=== PATIENT | male | born 1975 | race Caucasian/White ===

== ENCOUNTER 2018-04-16 12:19 | Outpatient (REF) | payer MEDICARE, SELFPAY ==
[2018-04-16 19:03] LABS: TSH (W/Ref FT4) 2.49 uIU/mL (0.358-3.74)
[2018-04-19 10:31] LABS: ALT 57 U/L (7-55); ActiTest Grade A0-A1; ActiTest Interpretation no activity; ActiTest Score 0.27; Alpha-2-Macroglobulin 177 mg/dL (100 - 280); Apoliprotein A1 166 mg/dL (>=120); Bilirubin, Total 0.2 mg/dL (<=1.2); FibroTest Interpretation no fibrosis; FibroTest Score 0.09; FibroTest Stage F0; GGT 94 U/L (8 - 61); Haptoglobin 179 mg/dL (30 - 200)
[2018-04-19 15:50] LABS: Testosterone, Free 8.36 ng/dL (4.46-17.1); Testosterone, Total 440 ng/dL (240-950)
== END 2018-04-16 12:39 ==
LOC: NCHCN 12:19
PROVIDERS: PCP Family Medicine; Visit Provider Family Medicine
DX: R94.6 Abnormal results of thyroid function studies (principal); K73.2 Chronic active hepatitis, not elsewhere classified; R53.83 Other fatigue
CPT/HCPCS: 82172; 82247; 82977; 83010; 83883; 84402; 84403; 84460; 84443

== ENCOUNTER 2018-05-01 08:34 | Emergency (ER) | payer MEDICARE, MEDICAID, SELFPAY ==
[2018-05-01 08:41] VITALS: BP 149/98; PULSE 113; RESP 16; TEMP 35.9; O2SAT 98
--- NOTE | 2018-05-01 09:11 | W.ED.GENAD ---
Discharge Plan Disposition Patient Disposition: HOME Condition: Stable Discharge Details Chief Complaint: DentalOral Clinical Impression: Dental infection, Dental abscess Primary Care Provider: Rosa Danielle ED Provider: Kenisha Hanks Home Meds and New Rx's Prescriptions: New penicillin V potassium 500 mg tablet 500 mg PO QID 7 Days Qty: 28 RF: 0 Continue quetiapine 25 MG tablet 400 mg PO BID RF: 0 buspirone 30 MG tablet 15 mg PO BID RF: 0 carbamazepine [Tegretol] 200 MG tablet 400 mg PO BID RF: 0 clonazepam 1 MG tablet 1 tab PO BID RF: 0 lisinopril 5 mg Tablet 5 mg PO DAILY RF: 0 Discharge Instructions Instructions: Dental Abscess (ED) Additional Instructions: You likely had a small dental abscess on exam today which was drained with palpation. No additional pus was removed with aspiration with needle. Take the antibiotics until finished. You will receive a call from care management regarding follow-up with a dentist for further evaluation of your dental pain and for any worsening of your abscess. Return to the emergency department with any worsening or new concerning symptoms such as fever, increased pain or swelling, or difficulty breathing. Discharge Data Discharge Date/Time-TO BE ENTERED AT DEPARTURE: 05/01/18 09:47 Discharge Physician: Kenisha Hanks Medical Decision Making 42-year-old male who presents with left lower dental pain for the past week, worse over the past 2 days. Denies fever, difficulty swallowing or difficulty breathing. Does not have a dentist. Afebrile. Mildly hypertensive, patient has a history of hypertension. Initially tachycardic on triage but then HR normalized during my exam. Patient appears nontoxic and in no acute distress. No submandibular swelling, drooling, no evidence of Cholo's angina. No peritonsillar abscess. Upon further inspection of area of pain in left lower most posterior tooth, when palpating with tongue depressor there was a very small amount of yellow pus drainage expressed with tongue blade from surrounding mucosa. There was no obvious discrete abscess, fluctuance noted. Area was anesthetized with 2 cc of lidocaine. Needle aspiration using a 18-gauge needle with 5 cc syringe was attempted 3 times in the area without any pus expressed. It is possible with tongue blade palpation, there was a very small abscess that was drained with palpation. Patient felt better after anesthesia. Patient given dose of penicillin here. He denied any relief with ibuprofen it was given 3 tabs of Tylenol with codeine for home. He was placed on care management list to help arrange for a follow-up appointment with a dentist. He was instructed to return here with any worsening symptoms. HPI General Mode of arrival: ambulatory. Date/Time Provider Initiated Documentation: 05/01/18 09:09. Limitations to Documentation: no limitations. Information obtained by: patient. HPI Narrative: Patient is a 42-year-old male presents with left lower dental pain for the past week, worse over the past 2 days. Patient has been taking ibuprofen and Tylenol without relief. He denies known fever. He has been eating and drinking. He denies neck pain or difficulty swallowing. He states he does not have a dentist. History: Anxiety, bipolar disorder, hypertension Surgical history: Left shoulder Bankart lesion repair, right knee bone spur Social history: Denies tobacco, alcohol or drugs Medications: Seroquel, Vistaril, Tegretol, Klonopin, BuSpar Allergies: Depakote PCP: Dr. Loving Related Data Home Medications Medication Instructions Recorded Confirmed buspirone 15 mg PO BID 10/10/12 05/01/18 quetiapine 400 mg PO BID 10/10/12 05/01/18 carbamazepine [Tegretol] 400 mg PO BID 11/16/12 05/01/18 clonazepam 1 tab PO BID 06/02/14 05/01/18 lisinopril 5 mg PO DAILY 05/01/18 05/01/18 penicillin V potassium 500 mg PO QID 7 Days #28 tab 05/01/18 Previous Rx's Medication Instructions Recorded penicillin V potassium 500 mg PO QID 7 Days #28 tab 05/01/18 Allergies Allergy/AdvReac Type Severity Reaction Status Date / Time divalproex sodium AdvReac Intermediate Unverified 05/01/18 08:48 [facility] General Stated Complaint: DentalOral RAMU: 4 Review of Systems Review of Systems All systems reviewed & are unremarkable except as noted in HPI and below PFSH Medical History Benign hypertension Bipolar disorder Social History Smoking/Tobacco Use Status: Former Tobacco Use Surgical History Bankart repair (11/19/12) EXCISION OSTEOCHONDROMA (10/17/12) Exam Const General: cooperative and healthy appearing Orientation: alert and awake HENMT Head: normal to inspection Ears: hearing grossly normal bilaterally, external ears normal and TM's normal bilaterally General nose exam: external nose normal Face and sinus: normal facial exam Mouth: oral mucosae normal Teeth and gingiva: other (Tenderness to palpation to left lower most posterior tooth in front of possible impacted wisdom tooth. Mild edema and erythema with tenderness palpation of mucosa posterior to left lower most posterior tooth but no obvious discrete abscess) Throat: posterior oropharynx normal Eyes General: appearance normal, both eyes and all related structures Eyelids: eyelids normal Pupils: PERRL EOM: EOM intact bilaterally Neck Neck: normal visual inspection and No submandibular swelling Lymphatic: no lymphadenopathy noted Chest Chest: normal inspection of the chest Resp Effort & Inspection: normal respiratory effort and able to speak in complete sentences Cardio Rate: regular rate Skin General skin exam: no rashes or lesions noted Neuro General: alert and awake Cognition: normal cognition Speech: speech normal Gait: normal gait Motor: muscle tone normal throughout Extrem General: normal to inspection and full ROM Psych Appearance: grossly normal Mental Status: mental status grossly normal Speech and Movement: speech and movement normal Affect: normal affect Thought Process: normal Course Vital Signs Temperature 96.6 F L 05/01/18 08:41 Pulse 113 H 05/01/18 08:41 Respiratory Rate 16 05/01/18 08:41 Blood Pressure 149/98 H 05/01/18 08:41 Pulse Oximetry 98 05/01/18 08:41 Temperature 96.6 F L 05/01/18 08:41 Temperature Source Skin 05/01/18 08:41 Pulse 113 H 05/01/18 08:41 Respiratory Rate 16 05/01/18 08:41 Respiratory Effort Non-Labored 05/01/18 08:41 Blood Pressure 149/98 H 05/01/18 08:41 Blood Pressure Position Sitting 05/01/18 08:41 Pulse Oximetry 98 05/01/18 08:41 Oxygen Delivery Method Room Air 05/01/18 08:41 Oxygen Flow Rate 0 05/01/18 08:41 Pain Level 9 05/01/18 08:41
--- NOTE | 2018-05-01 09:18 | ED.GENADUL_ITS ---
Discharge Plan Disposition Patient Disposition: HOME Condition: Stable Discharge Details Chief Complaint: DentalOral Clinical Impression: Dental infection, Dental abscess Primary Care Provider: Rosa Danielle ED Provider: Kenisha Hanks Home Meds and New Rx's Prescriptions: New penicillin V potassium 500 mg tablet 500 mg PO QID 7 Days Qty: 28 RF: 0 Continue quetiapine 25 MG tablet 400 mg PO BID RF: 0 buspirone 30 MG tablet 15 mg PO BID RF: 0 carbamazepine [Tegretol] 200 MG tablet 400 mg PO BID RF: 0 clonazepam 1 MG tablet 1 tab PO BID RF: 0 lisinopril 5 mg Tablet 5 mg PO DAILY RF: 0 Discharge Instructions Instructions: Dental Abscess (ED) Additional Instructions: You likely had a small dental abscess on exam today which was drained with palpation. No additional pus was removed with aspiration with needle. Take the antibiotics until finished. You will receive a call from care management regarding follow-up with a dentist for further evaluation of your dental pain and for any worsening of your abscess. Return to the emergency department with any worsening or new concerning symptoms such as fever, increased pain or swelling, or difficulty breathing. Discharge Data Discharge Date/Time-TO BE ENTERED AT DEPARTURE: 05/01/18 09:47 Discharge Physician: Kenisha Hanks Medical Decision Making 42-year-old male who presents with left lower dental pain for the past week, worse over the past 2 days. Denies fever, difficulty swallowing or difficulty breathing. Does not have a dentist. Afebrile. Mildly hypertensive, patient has a history of hypertension. Initially tachycardic on triage but then HR normalized during my exam. Patient appears nontoxic and in no acute distress. No submandibular swelling, drooling , no evidence of Cholo's angina. No peritonsillar abscess. Upon further inspection of area of pain in left lower most posterior tooth, when palpating with tongue depressor there was a very small amount of yellow pus drainage expressed with tongue blade from surrounding mucosa. There was no obvious discrete abscess, fluctuance noted. Area was anesthetized with 2 cc of lidocaine. Needle aspiration using a 18- gauge needle with 5 cc syringe was attempted 3 times in the area without any pus expressed. It is possible with tongue blade palpation, there was a very small abscess that was drained with palpation. Patient felt better after anesthesia. Patient given dose of penicillin here. He denied any relief with ibuprofen it was given 3 tabs of Tylenol with codeine for home. He was placed on care management list to help arrange for a follow-up appointment with a dentist. He was instructed to return here with any worsening symptoms. HPI General Mode of arrival: ambulatory . Date/Time Provider Initiated Documentation: 05/01/18 09:09 . Limitations to Documentation: no limitations . Information obtained by: patient . HPI Narrative: Patient is a 42-year-old male presents with left lower dental pain for the past week, worse over the past 2 days. Patient has been taking ibuprofen and Tylenol without relief. He denies known fever. He has been eating and drinking. He denies neck pain or difficulty swallowing. He states he does not have a dentist. History: Anxiety, bipolar disorder, hypertension Surgical history: Left shoulder Bankart lesion repair, right knee bone spur Social history: Denies tobacco, alcohol or drugs Medications: Seroquel, Vistaril, Tegretol, Klonopin, BuSpar Allergies: Depakote PCP: Dr. Loving Related Data Home Medications Medication Instructions Recorded Confirmed buspirone 15 mg PO BID 10/10/12 05/01/18 quetiapine 400 mg PO BID 10/10/12 05/01/18 carbamazepine [Tegretol] 400 mg PO BID 11/16/12 05/01/18 clonazepam 1 tab PO BID 06/02/14 05/01/18 lisinopril 5 mg PO DAILY 05/01/18 05/01/18 penicillin V potassium 500 mg PO QID 7 Days #28 tab 05/01/18 Previous Rx's Medication Instructions Recorded penicillin V potassium 500 mg PO QID 7 Days #28 tab 05/01/18 Allergies Allergy/AdvReac Type Severity Reaction Status Date / Time divalproex sodium AdvReac Intermediate Unverified 05/01/18 08:48 [[facility] General Stated Complaint: DentalOral RAMU: 4 Review of Systems Review of Systems All systems reviewed & are unremarkable except as noted in HPI and below PFSH Medical History Benign hypertension Bipolar disorder Social History Smoking/Tobacco Use Status: Former Tobacco Use Surgical History Bankart repair (11/19/12) EXCISION OSTEOCHONDROMA (10/17/12) Exam Const General: cooperative and healthy appearing Orientation: alert and awake HENMT Head: normal to inspection Ears: hearing grossly normal bilaterally, external ears normal and TM's normal bilaterally General nose exam: external nose normal Face and sinus: normal facial exam Mouth: oral mucosae normal Teeth and gingiva: other (Tenderness to palpation to left lower most posterior tooth in front of possible impacted wisdom tooth. Mild edema and erythema with tenderness palpation of mucosa posterior to left lower most posterior tooth but no obvious discrete abscess) Throat: posterior oropharynx normal Eyes General: appearance normal, both eyes and all related structures Eyelids: eyelids normal Pupils: PERRL EOM: EOM intact bilaterally Neck Neck: normal visual inspection and No submandibular swelling Lymphatic: no lymphadenopathy noted Chest Chest: normal inspection of the chest Resp Effort & Inspection: normal respiratory effort and able to speak in complete sentences Cardio Rate: regular rate Skin General skin exam: no rashes or lesions noted Neuro General: alert and awake Cognition: normal cognition Speech: speech normal Gait: normal gait Motor: muscle tone normal throughout Extrem General: normal to inspection and full ROM Psych Appearance: grossly normal Mental Status: mental status grossly normal Speech and Movement: speech and movement normal Affect: normal affect Thought Process: normal Course Vital Signs Temperature 96.6 F L 05/01/18 08:41 Pulse 113 H 05/01/18 08:41 Respiratory Rate 16 05/01/18 08:41 Blood Pressure 149/98 H 05/01/18 08:41 Pulse Oximetry 98 05/01/18 08:41 Temperature 96.6 F L 05/01/18 08:41 Temperature Source Skin 05/01/18 08:41 Pulse 113 H 05/01/18 08:41 Respiratory Rate 16 05/01/18 08:41 Respiratory Effort Non-Labored 05/01/18 08:41 Blood Pressure 149/98 H 05/01/18 08:41 Blood Pressure Position Sitting 05/01/18 08:41 Pulse Oximetry 98 05/01/18 08:41 Oxygen Delivery Method Room Air 05/01/18 08:41 Oxygen Flow Rate 0 05/01/18 08:41 Pain Level 9 05/01/18 08:41
[2018-05-01] MEDS: Penicillin V POTASSIUM 500 MG TAB PO (09:38)
--- NOTE | 2018-05-02 09:36 | PDOC.ERCMPRO ---
Care Management Progress Note 05/02/18-Pt seen on 05/01/18 for a dental abcess. CM made a f/u appt with [facility] 05/07/18 at 10:30am. LOKESH reeder for Pt.
== END 2018-05-01 09:47 | disposition home or self-care (01) ==
LOC: ER 10:05
PROVIDERS: Emergency Provider Physician Assistant; PCP Family Medicine
DX: K04.7 Periapical abscess without sinus (principal); I10 Essential (primary) hypertension
CPT/HCPCS: 99283

== ENCOUNTER → 2020-06-17 13:44 | Outpatient (REF) | payer MEDICARE, MEDICAID, SELFPAY ==
[2020-06-17 20:41] LABS: ALT 55 U/L (16-63); AST 26 U/L (15-37); Albumin 4.4 g/dL (3.4-5.0); Alkaline Phosphatase 92 U/L (46-116); Anion Gap 8.8 mmol/L (3-11); BUN 23 mg/dL (7-18); Bilirubin, Total 0.3 mg/dL (0.2-1.0); CO2 26.2 mmol/L (21.0-32.0); CREATININE 1.04 mg/dL (0.70-1.30); Calcium 9.2 mg/dL (8.5-10.1); Calculated LDL 175 mg/dL (<100); Chloride 104 mmol/L (98-107); Cholesterol 246 mg/dL (<200); Glucose 118 mg/dL (74-106); HDL Cholesterol 41 mg/dL (40-60); Potassium 4.3 mmol/L (3.5-5.1); Sodium 139 mmol/L (136-145); TSH (W/Ref FT4) 2.13 uIU/mL (0.36-3.74); Total Protein 8.2 g/dL (6.4-8.2); Triglyceride 151 mg/dL (<150)
[2020-06-17 20:43] LABS: HCT 43.8 % (40.0-50.0); HGB 14.8 g/dL (13.5-17.5); MCH 28.5 pg (27.0-33.0); MCHC 33.8 % (32.0-36.0); MCV 84.4 fL (80-95); MPV 10.3 fL (8.0-11.0); Platelet Count 257 10^3/uL (130-400); RBC 5.19 10^6/uL (4.36-5.78); RDW 11.4 % (11.8-14.1); WBC 5.92 10^3/uL (4.4-10.8)
[2020-06-17 21:31] LABS: Hemoglobin A1C 5.5 % (<5.7)
== END ==
LOC: NCHCN 13:44
PROVIDERS: PCP Family Medicine; Visit Provider Family Medicine
DX: E03.9 Hypothyroidism, unspecified (principal); I10 Essential (primary) hypertension; B18.2 Chronic viral hepatitis C; Z13.1 Encounter for screening for diabetes mellitus; Z13.220 Encounter for screening for lipoid disorders
CPT/HCPCS: 80053; 80061; 85027; 83036; 84443

== ENCOUNTER 2021-05-12 16:20 | Outpatient (REF) | payer MEDICARE, MEDICAID, SELFPAY | END 2021-05-12 16:21 | disposition home or self-care (01) | LOC: LBN 16:20 | PROVIDERS: PCP Family Medicine; Visit Provider Family Medicine | DX: J02.9 Acute pharyngitis, unspecified (principal) | CPT/HCPCS: 87077; 87070 ==

== ENCOUNTER 2021-05-14 13:42 | Outpatient (REF) | payer MEDICARE, MEDICAID, SELFPAY ==
[2021-05-14 20:29] LABS: HCT 42.2 % (40.0-50.0); HGB 13.9 g/dL (13.5-17.5); MCHC 32.9 % (32.0-36.0); MCV 87.9 fL (80-95); Platelet Count 283 10^3/uL (130-400); RDW 11.8 % (11.8-14.1); WBC 9.27 10^3/uL (4.4-10.8)
[2021-05-14 20:48] LABS: ALT 33 U/L (16-63); AST 21 U/L (15-37); Albumin 3.4 g/dL (3.4-5.0); Alkaline Phosphatase 103 U/L (46-116); Anion Gap 6.9 mmol/L (3-11); BUN 19 mg/dL (7-18); Bilirubin, Total 0.3 mg/dL (0.2-1.0); CO2 31.1 mmol/L (21.0-32.0); CREATININE 0.8 mg/dL (0.70-1.30); Chloride 101 mmol/L (98-107); Glucose 105 mg/dL (74-106); Potassium 4.2 mmol/L (3.5-5.1); Sodium 139 mmol/L (136-145); TSH (W/Ref FT4) 1.22 uIU/mL (0.36-3.74); Total Protein 7.7 g/dL (6.4-8.2)
[2021-05-17 10:42] LABS: HBs Antibody, Quant 197.2 mIU/mL (See Note); Hepatitis B Surface Ab Positive (See Note)
[2021-05-17 10:53] LABS: Hepatitis B Surface Ag Negative (Negative)
[2021-05-17 11:35] LABS: Hep B Core Antibody Negative (Negative)
[2021-05-17 11:46] LABS: HIV-1/2 Ag & Ab Screen Negative (Negative)
[2021-05-17 12:31] LABS: HCV RNA Detection Quantitative 11000000 IU/mL (Undetected); HCV RNA Qualitative Detected (Undetected)
== END 2021-05-14 13:43 | disposition home or self-care (01) ==
LOC: LBN 13:42
PROVIDERS: PCP Family Medicine; Visit Provider Family Medicine
DX: B18.2 Chronic viral hepatitis C (principal); E03.9 Hypothyroidism, unspecified
CPT/HCPCS: 80053; 85027; 86704; 86706; 87340; 87389; 87522; 84443

== ENCOUNTER 2021-06-15 03:03 | Outpatient (CLI) | payer MEDICARE, MEDICAID, SELFPAY ==
[2021-06-15 12:39] LABS: Abs Immature Grans 0.02 10^3/uL (0.0-0.06); Absolute Basophil Count 0.06 10^3/uL (0.0-0.2); Absolute Eosinophil Count 0.31 10^3/uL (0.0-0.7); Absolute Lymphocyte Count 2.46 10^3/uL (1.2-3.4); Absolute Monocyte Count 0.62 10^3/uL (0.1-0.8); Absolute Neutrophil Count 2.83 10^3/uL (1.2-6.7); Eosinophils % 4.9; HCT 41.7 % (40.0-50.0); HGB 13.7 g/dL (13.5-17.5); Immature Grans % 0.3; MCH 28.8 pg (27.0-33.0); MCHC 32.9 % (32.0-36.0); MCV 87.8 fL (80-95); MPV 9.9 fL (8.0-11.0); Monocytes % 9.8; Nucleated RBC 0 %; Platelet Count 233 10^3/uL (130-400); RBC 4.75 10^6/uL (4.36-5.78); RDW 12.3 % (11.8-14.1)
[2021-06-15 12:42] LABS: ALT 68 U/L (16-63); AST 27 U/L (15-37); Albumin 3.6 g/dL (3.4-5.0); Alkaline Phosphatase 126 U/L (46-116); Anion Gap 8.7 mmol/L (3-11); BUN 22 mg/dL (7-18); Bilirubin, Total 0.4 mg/dL (0.2-1.0); CO2 28.3 mmol/L (21.0-32.0); CREATININE 0.9 mg/dL (0.70-1.30); Calcium 8.5 mg/dL (8.5-10.1); Chloride 101 mmol/L (98-107); Glucose 117 mg/dL (74-106); Potassium 4.5 mmol/L (3.5-5.1); Sodium 138 mmol/L (136-145); TROPONIN-I 6.3 ug/mL (4.0-12.0); Total Protein 7.6 g/dL (6.4-8.2)
== END 2021-06-15 03:04 | disposition home or self-care (01) ==
LOC: LBO 03:03
PROVIDERS: PCP Family Medicine; Visit Provider Counselor Addiction (Substance Use Disorder)
DX: F31.32 Bipolar disorder, current episode depressed, moderate (principal)
CPT/HCPCS: 36415; 80053; 80156; 85025

== ENCOUNTER 2021-11-30 03:31 | Outpatient (CLI) | payer MEDICARE, MEDICAID, SELFPAY | END 2021-11-30 03:32 | disposition home or self-care (01) | PROVIDERS: PCP Family Medicine; Visit Provider Family Medicine ==

== ENCOUNTER 2021-12-07 11:05 | Outpatient (CLI) | payer MEDICARE, MEDICAID, SELFPAY ==
--- NOTE | 2021-12-07 11:15 | RT.EKG_ITS ---
APPROVED REPORT Exam: Resting ECG Reason for Exam: HIGH RISK MEDICATION Patient Location: O HR:55 bpm ECG Measurements Heart Rate 55 AXIS TN 193 P 64 QRSd 113 QRS 77 QT 418 T 65 QTc 400 Conclusion Sinus rhythm...normal P axis, V-rate 50- 99 Incomplete right bundle branch block...QRSd >112, terminal axis(90,270) ST elev, probable normal early repol pattern...ST elevation, age<55
== END 2021-12-07 11:06 | disposition home or self-care (01) ==
LOC: RT 11:06
PROVIDERS: PCP Family Medicine; Visit Provider Family Medicine
DX: Z51.81 Encounter for therapeutic drug level monitoring (principal); R94.31 Abnormal electrocardiogram [ECG] [EKG]; I45.10 Unspecified right bundle-branch block
CPT/HCPCS: 93005; 93010

== ENCOUNTER 2021-12-17 21:10 | Emergency (ER) | payer MEDICARE, MEDICAID, SELFPAY ==
--- NOTE | 2021-12-17 21:15 | RT.EKG_ITS ---
APPROVED REPORT Exam: Resting ECG Reason for Exam: chest pain Patient Location: E HR:68 bpm ECG Measurements Heart Rate 68 AXIS RI 199 P 11 QRSd 112 QRS 12 QT 386 T 14 QTc 410 Conclusion Sinus rhythm...normal P axis, V-rate 60- 99
[2021-12-17 21:17] VITALS: BP 140/71; PULSE 66; RESP 18; TEMP 35.6; O2SAT 96
--- NOTE | 2021-12-17 21:23 | ED.GENADUL_ITS ---
Discharge Plan Disposition Patient Disposition: HOME Condition: Improving Discharge Details Clinical Impression: Trigger finger, left little finger, Atypical chest pain Primary Care Provider: Eugenio Loving ED Provider: Pranay Hargrove Home Meds and New Rx's Prescriptions: Continued quetiapine 25 MG tablet 400 mg PO BID Label Comments: Pt stats he has not taken seroquel for weeks. buspirone 30 MG tablet 15 mg PO BID carbamazepine [Tegretol] 200 MG tablet 400 mg PO BID clonazepam 1 MG tablet 1 tab PO BID methadone 10 mg Tablet lisinopril 5 mg Tablet 5 mg PO DAILY Discharge Instructions Instructions: Chest Pain (ED) Additional Instructions: We have placed a referral to the orthopedic clinic for evaluation of your left pinky trigger finger. The orthopedic office #[phone] You may have a component of carpal tunnel syndrome and may benefit from a splint to sleep with. These are available [id number]. Your sodium was very slightly low today and you may benefit from slight increase in salty snacks over the next 1 to 2 days. Your work-up included chest x-ray, blood work with cardiac troponin and EKG. These tests were reassuring. Return to the ER for any acute concern. Medical Decision Making This is a 46-year-old male who presents stating he has had 2 days of intermittent chest discomfort that is now resolved. He was worried because some mornings he wakes up and his left upper extremity has numbness of the fourth and fifth digits. He also finds that his left fifth digit of the upper extremity is often in a flexed position in the mornings and he has to straighten it out with a palpable click. The patient's exam is reassuring. Likely has a trigger finger of the left hand fifth digit, he may have some signs of carpal tunnel syndrome. His screening medical exam tonight includes chest x-ray, laboratory and EKG. Laboratories show a normal CBC, chemistries with sodium 133, potassium 4.5, chloride 98, bicarb 29, BUN 18, creatinine 1.0. Normal LFTs, negative troponin. Chest x-ray NAD. Do not find evidence of acute coronary syndrome. Patient may have some component of some anxiety. I feel he likely does have mild carpal tunnel syndrome and does have trigger finger of the left hand. We will refer him to orthopedics for evaluation of the trigger finger. He is reassured as to the findings of today's work-up. He is stable and appropriate for discharge to home. He remains chest pain free throughout his stay in the ER. HPI General Mode of arrival: ambulatory . Date/Time Provider Initiated Documentation: 12/17/21 21:14 . Limitations to Documentation: no limitations . Information obtained by: patient . History of Present Illness 46 year old M presents to the emergency department with the chief complaint of Numerous complaints, recent chest pain, now, described as mild, and is localized to the chest. Patient reports no radiation. Patient started experiencing this day(s) and it has been intermittent and now resolved. No relieving factors improve symptom(s), No exacerbating factors reported . Patient notes denies cough, shortness of breath, syncope and weakness. Patient did receive the following treatments prior to arrival, none Related Data Home Medications Medication Instructions Recorded Confirmed buspirone 30 mg tablet 15 mg PO BID 10/10/12 12/17/21 quetiapine 25 mg tablet 400 mg PO BID 10/10/12 12/17/21 carbamazepine 200 mg tablet 400 mg PO BID 11/16/12 12/17/21 (Tegretol) clonazepam 1 mg tablet 1 tab PO BID 06/02/14 12/17/21 lisinopril 5 mg tablet 5 mg PO DAILY 05/01/18 12/17/21 methadone 10 mg tablet mg 12/17/21 Allergies Allergy/AdvReac Type Severity Reaction Status Date / Time divalproex sodium AdvReac Intermediate Unverified 05/01/18 08:48 [From [facility]] General Stated Complaint: Chest Pain RAMU: 3 Review of Systems Narrative: No cough or difficulty breathing. Notes he has a trigger finger on the left fifth digit. Notes some numbness in the mornings of the left fourth and fifth digits of the upper extremity. No rash. No fall or injury. 8 systems were reviewed and otherwise negative PFSH All Active Problems (Updated 12/17/21 @ 22:05 by Pranay Hargrove MD) Trigger finger, left little finger (Acute) Atypical chest pain (Acute) Medical History (Updated 12/17/21 @ 22:05 by Pranay Hargrove MD) Benign hypertension Bipolar disorder Surgical History Bankart repair (11/19/12) Left shoulder EXCISION OSTEOCHONDROMA (10/17/12) RIGHT TIBIA Social History Smoking/Tobacco Use Status: Current every day Smoking risk assessment performed?: Yes Alcohol Intake: never Drug use: Rarely Substance use type: marijuana Do you feel safe at home: Yes Do you feel safe in your relationship?: Yes Exam Narrative Exam Narrative: GEN: awake, alert, oriented 3. Pleasant, well groomed, interactive. HEAD: Normocephalic, atraumatic ENT: Mucous membranes moist, oropharynx unremarkable, External ear exam unremarkable EYES: PERRL, EOMI NECK: Full ROM, no BORIS, no menigismus CHEST/RESP: Nontender, clear to auscultation bilateral, no wheeze/rhonchi/rales CARDIOVASCULAR: RRR, no murmur, rub lizbeth. 2+ Rad pulse bilateral ABDOMEN: Soft, nontender, no mass. +Bowel sounds EXT: Full ROM, no edema, no rash. Nodular and palpable click on the flexor surface of the palm proximal to the left fifth digit of the upper extremity. Normal motor and sensory testing of the upper extremity bilaterally Neuro: Grossly normal neurologic exam, conversant, interactive. Psych: Speech fluent, thoughts congruent, affect normal Course Vital Signs Vital signs: Vital Signs Temperature 35.6 C L 12/17/21 21:17 Pulse 66 12/17/21 21:17 Respiratory Rate 18 12/17/21 21:17 Pulse Oximetry 96 12/17/21 21:17 Temperature 35.6 C L 12/17/21 21:17 Temperature Source Tympanic 12/17/21 21:17 Pulse 66 12/17/21 21:17 Respiratory Rate 18 12/17/21 21:17 Respiratory Effort Non-Labored 12/17/21 21:21 Blood Pressure Position Sitting 12/17/21 21:17 Pulse Oximetry 96 12/17/21 21:17 Oxygen Delivery Method Room Air 12/17/21 21:17 Oxygen Flow Rate 0 12/17/21 21:17
[2021-12-17 21:30] VITALS: RESP 18
--- NOTE | 2021-12-17 21:30 | DI.RAD_ITS ---
Exam(s) XR CHEST 2V PA LATERAL EXAM: XR CHEST 2V PA LATERAL CLINICAL HISTORY: L chest pain. TECHNIQUE: 2D digital imaging was performed. COMPARISON: CR CHEST 2 VIEWS PA,LAT from 07/09/2012 FINDINGS: 2 views: Heart size is normal. The mediastinum is not widened. Lungs are clear. No infiltrates nor pleural effusions. IMPRESSION: No acute pulmonary findings. DATA REPOSITORY: RADIATION DOSE DELIVERED:
[2021-12-17 21:46] LABS: Abs Immature Grans 0.02 10^3/uL (0.0-0.06); Absolute Basophil Count 0.05 10^3/uL (0.0-0.2); Absolute Eosinophil Count 0.26 10^3/uL (0.0-0.7); Absolute Lymphocyte Count 1.82 10^3/uL (1.2-3.4); Absolute Monocyte Count 0.54 10^3/uL (0.1-0.8); Absolute Neutrophil Count 3.93 10^3/uL (1.2-6.7); Basophils % 0.8; Eosinophils % 3.9; HCT 42.7 % (40.0-50.0); HGB 14.5 g/dL (13.5-17.5); Immature Grans % 0.3; Lymphocytes % 27.5; MCH 29.7 pg (27.0-33.0); MCV 87 fL (80-95); MPV 9.8 fL (8.0-11.0); Monocytes % 8.2; Neutrophils % 59.3; Platelet Count 246 10^3/uL (130-400); RBC 4.89 10^6/uL (4.36-5.78); RDW 12.1 % (11.8-14.1); RDW-SD 38.8 fL; WBC 6.62 10^3/uL (4.4-10.8)
[2021-12-17 22:02] LABS: ALT 42 U/L (16-63); AST 30 U/L (15-37); Albumin 3.8 g/dL (3.4-5.0); Alkaline Phosphatase 109 U/L (46-116); Anion Gap 5.9 mmol/L (3-11); BUN 18 mg/dL (7-18); Bilirubin, Total 0.3 mg/dL (0.2-1.0); CO2 29.1 mmol/L (21.0-32.0); Calcium 8.7 mg/dL (8.5-10.1); Chloride 98 mmol/L (98-107); Glucose 92 mg/dL (74-106); Potassium 4.5 mmol/L (3.5-5.1); Sodium 133 mmol/L (136-145); Total Protein 7.8 g/dL (6.4-8.2); Troponin I < 50 ng/L (<or=60)
--- NOTE | 2021-12-17 22:51 | DI.VRAD_ITS ---
PROCEDURE INFORMATION: Exam: XR Chest Exam date and time: 12/17/2021 10:21 PM Age: 46 years old Clinical indication: Pain; Chest pressure TECHNIQUE: Imaging protocol: XR of the chest. Views: 2 views. COMPARISON: No relevant prior studies available. FINDINGS: Lungs: Unremarkable. No consolidation. Pleural spaces: Unremarkable. No pleural effusion. No pneumothorax. Heart/Mediastinum: Unremarkable. No cardiomegaly. Bones/joints: Unremarkable. IMPRESSION: No acute findings. Dictated and Authenticated by: Jorge Dave MD. Ordering:HUANG Pires MD
[2021-12-17 23:00] VITALS: BP 132/86; PULSE 68; RESP 18; TEMP 37.2; O2SAT 99
== END 2021-12-17 23:00 | disposition home or self-care (01) ==
PROVIDERS: Emergency Provider Emergency Medicine; PCP Family Medicine
DX: M65.352 Trigger finger, left little finger (principal); R07.89 Other chest pain
CPT/HCPCS: 36415; 80053; 93005; 99284; 71046; 83735; 84484; 85025; 93010; 99283

== ENCOUNTER 2021-12-30 17:47 | Outpatient (REF) | payer MEDICARE, MEDICAID, SELFPAY ==
[2021-12-31 15:06] LABS: Chlamydia Result Negative (Negative); GC Result Negative (Negative)
== END 2021-12-30 17:48 | disposition home or self-care (01) ==
LOC: LBN 17:47
PROVIDERS: PCP Family Medicine; Visit Provider Physician Assistant Medical
DX: N50.812 Left testicular pain (principal)
CPT/HCPCS: 87491; 87591

== ENCOUNTER 2022-01-07 17:31 | Outpatient (REF) | payer MEDICARE, MEDICAID, SELFPAY ==
[2022-01-07 22:20] LABS: RBC 0-2 HPF (0-2); WBC 0-2 HPF (0-5)
[2022-01-07 22:21] LABS: Bacteria Few HPF (Negative); C & S Indicated? C&S Done As Ordered; Crystals Negative HPF (Negative); Epithelial Cells Negative HPF (Negative); Mucus Negative (Negative)
== END 2022-01-07 17:32 | disposition home or self-care (01) ==
LOC: LBN 17:31
PROVIDERS: PCP Family Medicine; Visit Provider Physician Assistant Medical
DX: N50.812 Left testicular pain (principal); R82.998 Other abnormal findings in urine
CPT/HCPCS: 81015; 87086

== ENCOUNTER 2022-02-04 18:18 | Outpatient (REF) | payer MEDICARE, MEDICAID, SELFPAY ==
[2022-02-04 17:40] LABS: Bilirubin Negative (Negative); Blood Negative (Negative); Clarity Clear (Clear); Glucose Negative (Negative); Ketones Negative (Negative); Leukocyte Esterase Negative (Negative); Nitrite Negative (Negative); Specific Gravity >= 1.030 (1.005-1.025); Urobilinogen 0.2 EU/dL (Up TO 0.2); pH 5.5 (5-8)
[2022-02-04 17:49] LABS: Bacteria Negative HPF (Negative); C & S Indicated? No; Casts Negative LPF (Negative); Crystals Negative HPF (Negative); Epithelial Cells Rare HPF (Negative); Mucus Trace (Negative); RBC Negative HPF (0-2); WBC Negative HPF (0-5)
== END 2022-02-04 18:19 | disposition home or self-care (01) ==
LOC: NCHCN 18:18
PROVIDERS: PCP Family Medicine; Visit Provider Family Medicine
DX: N50.812 Left testicular pain (principal); R82.998 Other abnormal findings in urine
CPT/HCPCS: 81003; 81015

== ENCOUNTER → 2022-02-14 01:48 | Outpatient (CLI) | payer MEDICARE, MEDICAID, SELFPAY | PROVIDERS: PCP Family Medicine; Visit Provider Physician Assistant Medical ==

== ENCOUNTER 2022-02-24 06:21 | Emergency (ER) | payer MEDICARE, MEDICAID, SELFPAY ==
[2022-02-24 06:28] VITALS: BP 134/67; PULSE 71; RESP 16; TEMP 36.2; O2SAT 100
--- NOTE | 2022-02-24 06:38 | ED.GENADUL_ITS ---
Discharge Plan Disposition Patient Disposition: HOME Condition: Good Discharge Details Clinical Impression: Functional nausea, Acute dehydration Primary Care Provider: Eugenio Loving ED Provider: Travis Martin Home Meds and New Rx's Prescriptions: No Action quetiapine 25 MG tablet 400 mg PO BID Label Comments: Pt stats he has not taken seroquel for weeks. buspirone 30 MG tablet 15 mg PO BID carbamazepine [Tegretol] 200 MG tablet 400 mg PO BID clonazepam 1 MG tablet 1 tab PO BID methadone 10 mg Tablet 120 mg BID levothyroxine 88 mcg tablet 88 mcg PO DAILY hydroxyzine pamoate 25 mg capsule 25 mg PO PRN lisinopril 5 mg Tablet 5 mg PO DAILY Discharge Instructions Instructions: Acute Nausea and Vomiting (ED) Additional Instructions: At this time based on your exam and symptoms your nausea appears consistent with gastric irritation from your prolonged doxycycline use. There may be a viral component that is also exacerbating it. You will be contacted with your COVID test results later today if they are positive. In the meantime please continue to drink plenty fluids, take the Zofran as needed for nausea. Take Pepto-Bismol or MiraLAX to help with the irritation of your stomach. If your symptoms continue or worsen or you develop persistent vomiting you may require repeat evaluation and potential CAT scan imaging. If you notice any worsening of your symptoms, or any new symptoms such as vomiting, diarrhea, fever, chills, shortness of breath, chest pain, numbness, weakness, or fainting , please return immediately to the emergency department for reevaluation. Please follow up with your primary care provider as soon as possible for reassessment and reevaluation. As always, it was a pleasure participating in your medical care today. Stand Alone Forms: Work Release Referrals: Eugenio Loving [Primary Care Provider] - Medical Decision Making This is a 46-year-old male with a past medical history of methadone use, chronic epididymitis, hypertension, bipolar disorder, who presents today for nausea, sweating, and mild weakness. He states that he has not been eating anything secondary to the nausea. He admits to mild generalized abdominal achi ness. He denies any focal pain aside for a mild focus of the achiness in the left upper quadrant. He denies any dysuria. He recently finished a prolonged course of doxycycline 4 days ago. He states he has been diagnosed with gastric ulcers before but this is a clinical diagnosis. His symptoms are improved by lying flat and lying still. He has not missed any doses of his methadone. He denies any spicy foods or changes in diet otherwise. He denies any diarrhea. He has not taken anything to make his symptoms better. No other complaints at this time. No other modifying factors Exam demonstrates dry mucous membranes, mild achiness throughout on palpation of the abdomen. No signs of an acute surgical abdomen. Mild tenderness in the left upper quadrant. Differential is highest for mild gastritis secondary to prolonged doxycycline use. However differential also does include enteritis, and less likely gallbladder etiology. Symptoms appear inconsistent with cholecystitis clinically and on exam at this time. We will rehydrate, give Bentyl and a GI cocktail, basic labs, monitor closely and reassess. Symptoms inconsistent with ACS. 7:20 AM Patient was reassessed, he feels improved. Abdomen shows no signs of an acute surgical abdomen. Negative sonographic Polanco sign on exam with bedside ultrasound. Gallbladder wall does not appear overly thickened, and gallbladder is not overly distended either. Patient now states that he also has a mild runny nose and has had it for the last 2 days. If he is specifically requesting COVID testing here. We will perform this on his behalf. Otherwise patient looks well. Laboratory work-up demonstrates no white count, bandemia, left shift, lipase is normal. Urinalysis is negative. Patient will be stable for discharge. Symptoms inconsistent with an acute surgical abdomen requiring or necessitating CT scan. Suspect mild gastric irritation secondary to prolonged doxycycline use and potential viral gastroenteritis component. 7:37 AM On reassessment patient feels much better. He feels comfortable and would like to go home. He will be given Zofran for home use. COVID test order is not back. Patient will be contacted by nursing staff when his COVID test results have returned. Work note given. Discussed red flags for which to return. I have extensively reviewed the treatment plan and discharge instructions with the patient. I have addressed all patient concerns at this time. The patient was made aware of what symptoms to monitor for that would warrant a return to the emergency department. Discussed the plan with the patient, they demonstrate verbal understanding and agreement with our assessment and plan at this time. The documentation in this chart was dictated using [employer] dictation software. Please excuse any dictation errors. HPI General Date/Time Provider Initiated Documentation: 02/24/22 06:23 . HPI Narrative: This is a 46-year-old male with a past medical history of methadone use, chronic epididymitis, hypertension, bipolar disorder, who presents today for nausea, sweating, and mild weakness. He states that he has not been eating anything secondary to the nausea. He admits to mild generalized abdominal achiness. He denies any focal pain aside for a mild focus of the achiness in the left upper quadrant. He denies any dysuria. He recently finished a prolonged course of doxycycline 4 days ago. He states he has been diagnosed with gastric ulcers before but this is a clinical diagnosis. His symptoms are improved by lying flat and lying still. He has not missed any doses of his methadone. He denies any spicy foods or changes in diet otherwise. He denies any diarrhea. He has not taken anything to make his symptoms better. No other complaints at this time. No other modifying factors Related Data Home Medications Medication Instructions Recorded Confirmed buspirone 30 mg tablet 15 mg PO BID 10/10/12 02/24/22 quetiapine 25 mg tablet 400 mg PO BID 10/10/12 02/24/22 carbamazepine 200 mg tablet 400 mg PO BID 11/16/12 02/24/22 (Tegretol) clonazepam 1 mg tablet 1 tab PO BID 06/02/14 02/24/22 lisinopril 5 mg tablet 5 mg PO DAILY 05/01/18 02/24/22 methadone 10 mg tablet 120 mg BID 12/17/21 02/24/22 hydroxyzine pamoate 25 mg capsule 25 mg PO PRN 02/24/22 levothyroxine 88 mcg tablet 88 mcg PO DAILY 02/24/22 02/24/22 Allergies Allergy/AdvReac Type Severity Reaction Status Date / Time divalproex sodium AdvReac Intermediate Unverified 02/24/22 06:35 [From [facility]] General Stated Complaint: Nausea/Vomit/Diar RAMU: 3 Review of Systems All systems reviewed & are unremarkable except as noted in HPI and below PFSH All Active Problems (Updated 02/24/22 @ 07:23 by Travis Martin DO) Functional nausea (Acute) Acute dehydration (Acute) Medical History (Updated 02/24/22 @ 07:23 by Travis Martin DO) Benign hypertension Bipolar disorder Surgical History Bankart repair (11/19/12) Left shoulder EXCISION OSTEOCHONDROMA (10/17/12) RIGHT TIBIA Social History Smoking/Tobacco Use Status: Current every day Tobacco Type: cigarettes Smoking risk assessment performed?: Yes Alcohol Intake: never Drug use: Rarely Substance use type: marijuana Do you feel safe at home: Yes Do you feel safe in your relationship?: Yes Exam Narrative Exam Narrative: 1.Const: Well-nourished, Well-developed, appearing stated age 2.Eyes: PERRL, no conjunctival injection, and symmetrical lids. 3.ENT: Atraumatic external nose and ears. Dry MM. Neck: Symmetric, trachea midline, No thyromegaly. 4.CVS: +S1/S2, No murmurs or gallops. Peripheral pulses 2+ and equal in all extremities. Brisk capillary refill in all extremities. 5.RESP: Unlabored respiratory effort. Clear to auscultation bilaterally. No wheezes rales or rhonchi 6.GI: Soft, nondistended, no guarding or rebound. Mild achiness in the left upper quadrant. Mild generalized achiness throughout. No pain at McBurney's point. Negative Polanco sign. Negative Rovsing sign 7.MSK: Normocephalic/Atraumatic, Extremities w/o deformity or ttp No cyanosis or clubbing, Normal movement of all extremities 8.Skin: Warm, Dry. No rashes or lesions. 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 Sensation grossly intact, no focal neurologic deficits. 10.Psych: (AAO) x3. Appropriate mood and affect Course Vital Signs Vital signs: Vital Signs Temperature 36.2 C L 02/24/22 06:28 Pulse 71 02/24/22 06:28 Respiratory Rate 16 02/24/22 06:28 Blood Pressure 134/67 02/24/22 06:28 Pulse Oximetry 100 02/24/22 06:28 Temperature 36.2 C L 02/24/22 06:28 Temperature Source Temporal Artery Scan 02/24/22 06:28 Pulse 71 02/24/22 06:28 Respiratory Rate 16 02/24/22 06:28 Respiratory Effort 02/24/22 06:28 Blood Pressure 134/67 02/24/22 06:28 Blood Pressure Position Sitting 02/24/22 06:28 Pulse Oximetry 100 02/24/22 06:28 Oxygen Delivery Method Room Air 02/24/22 06:28 Oxygen Flow Rate 0 02/24/22 06:28 Pain Level 4 02/24/22 06:28
[2022-02-24 06:44] LABS: Absolute Basophil Count 0.06 10^3/uL (0.0-0.2); Absolute Eosinophil Count 0.29 10^3/uL (0.0-0.7); Absolute Monocyte Count 0.55 10^3/uL (0.1-0.8); Absolute Neutrophil Count 3.34 10^3/uL (1.2-6.7); Basophils % 0.9; Eosinophils % 4.5; HCT 47.2 % (40.0-50.0); HGB 16.1 g/dL (13.5-17.5); Lymphocytes % 34.2; MCH 29.4 pg (27.0-33.0); MCHC 34.1 % (32.0-36.0); MCV 86 fL (80-95); MPV 9.7 fL (8.0-11.0); Monocytes % 8.5; Neutrophils % 51.9; Platelet Count 221 10^3/uL (130-400); RBC 5.48 10^6/uL (4.36-5.78); RDW 11.8 % (11.8-14.1); RDW-SD 37.4 fL; WBC 6.44 10^3/uL (4.4-10.8)
[2022-02-24] MEDS: Normal Saline 1,000 ML 1000 ML IV (06:54)
[2022-02-24] MEDS: Ondansetron 4 MG/2 ML VIAL IVP (06:54)
[2022-02-24] MEDS: Dicyclomine 20 MG TAB PO (06:56)
[2022-02-24 07:05] LABS: ALT 50 U/L (16-63); AST 28 U/L (15-37); Albumin 3.6 g/dL (3.4-5.0); Alkaline Phosphatase 97 U/L (46-116); Anion Gap 5.4 mmol/L (3-11); BUN 15 mg/dL (7-18); Bilirubin, Total 0.3 mg/dL (0.2-1.0); CO2 29.6 mmol/L (21.0-32.0); CREATININE 0.9 mg/dL (0.70-1.30); Calcium 8.6 mg/dL (8.5-10.1); Chloride 101 mmol/L (98-107); Glucose 114 mg/dL (74-106); Lipase 34 U/L (73-393); Potassium 3.9 mmol/L (3.5-5.1); Sodium 136 mmol/L (136-145); Total Protein 7.6 g/dL (6.4-8.2)
[2022-02-24 07:11] LABS: Bilirubin Negative (Negative); Blood Negative (Negative); Clarity Clear (Clear); Glucose Negative (Negative); Ketones Negative (Negative); Leukocyte Esterase Negative (Negative); Nitrite Negative (Negative); Urobilinogen 0.2 EU/dL (Up TO 0.2)
[2022-02-24 07:31] LABS: Source Nasal/Nares
[2022-02-24] MEDS: Ondansetron O.D.T. 4 MG TABEF, 3 TABS/BTL PO (07:55)
[2022-02-24 08:03] LABS: COVID-19 PCR Negative (Negative)
== END 2022-02-24 07:56 | disposition home or self-care (01) ==
PROVIDERS: Emergency Provider Student in an Organized Health Care Education/Training Program; PCP Family Medicine
DX: E86.0 Dehydration (principal); I10 Essential (primary) hypertension; R10.84 Generalized abdominal pain; R10.812 Left upper quadrant abdominal tenderness; F17.210 Nicotine dependence, cigarettes, uncomplicated; Z20.822 Contact with and (suspected) exposure to COVID-19
CPT/HCPCS: 36415; 80053; 83690; 87635; 96361; 96374; 99284; 81003; 85025; J2405

== ENCOUNTER 2022-07-13 18:16 | Emergency (ER) | payer MEDICARE, MEDICAID, SELFPAY ==
[2022-07-13 18:23] VITALS: BP 163/102; PULSE 56; RESP 20; TEMP 36.3; O2SAT 97
[2022-07-13 20:25] LABS: Abs Immature Grans 0.03 10^3/uL (0.0-0.06); Absolute Basophil Count 0.03 10^3/uL (0.0-0.2); Absolute Eosinophil Count 0.09 10^3/uL (0.0-0.7); Absolute Lymphocyte Count 1.14 10^3/uL (1.2-3.4); Absolute Monocyte Count 0.65 10^3/uL (0.1-0.8); Basophils % 0.3; Eosinophils % 0.8; HCT 47.5 % (40.0-50.0); HGB 16.2 g/dL (13.5-17.5); Immature Grans % 0.3; Lymphocytes % 10.1; MCH 29.4 pg (27.0-33.0); MCHC 34.1 % (32.0-36.0); MCV 86 fL (80-95); MPV 9.9 fL (8.0-11.0); Monocytes % 5.8; Neutrophils % 82.7; Platelet Count 211 10^3/uL (130-400); RBC 5.51 10^6/uL (4.36-5.78); RDW 11.9 % (11.8-14.1); RDW-SD 37.9 fL; WBC 11.26 10^3/uL (4.4-10.8)
[2022-07-13 20:36] LABS: Absolute Neutrophil Count 9.31 10^3/uL (1.2-6.7)
[2022-07-13 20:40] LABS: ALT 173 U/L (16-63); AST 77 U/L (15-37); Albumin 3.7 g/dL (3.4-5.0); Alkaline Phosphatase 102 U/L (46-116); Anion Gap 6.2 mmol/L (3-11); BUN 28 mg/dL (7-18); Bilirubin, Total 0.4 mg/dL (0.2-1.0); CO2 29.8 mmol/L (21.0-32.0); CREATININE 0.8 mg/dL (0.70-1.30); Calcium 8.7 mg/dL (8.5-10.1); Chloride 103 mmol/L (98-107); Estimated GFR 110.53 (mL/min/1.73m2); Glucose 116 mg/dL (74-106); Lipase 46 U/L (73-393); Magnesium 1.7 mg/dL (1.8-2.4); Potassium 3.9 mmol/L (3.5-5.1); Sodium 139 mmol/L (136-145)
--- NOTE | 2022-07-13 21:00 | ED.GENADUL_ITS ---
Discharge Plan Disposition Patient Disposition: Home Condition: Improving Discharge Details Clinical Impression: Gastritis Primary Care Provider: Eugenio Loving ED Provider: Delfino Brice Home Meds and New Rx's Prescriptions: New famotidine [Pepcid] 40 mg tablet 40 mg PO DAILY Qty: 30 0RF sucralfate [Carafate] 1 gram tablet 1 g PO BID Qty: 30 0RF Continued quetiapine 25 MG tablet 400 mg PO BID Label Comments: Pt stats he has not taken seroquel for weeks. buspirone 30 MG tablet 15 mg PO BID carbamazepine [Tegretol] 200 MG tablet 400 mg PO BID clonazepam 1 MG tablet 1 tab PO BID methadone 10 mg Tablet 120 mg BID levothyroxine 88 mcg tablet 88 mcg PO DAILY lisinopril 5 mg Tablet 5 mg PO DAILY Discharge Instructions Instructions: Gastritis (ED) Additional Instructions: As discussed it is important to reduce caffeine intake especially on empty stomach and take your medications with little bit of food or milk. If you develop any new or worsening symptoms return to the emergency department for reassessment otherwise follow-up with your primary care provider for reassessment and recheck of your elevated liver labs Referrals: Eugenio Loving [Primary Care Provider] - 2 weeks (For reassessment of your symptoms and further as needed) Medical Decision Making Patient presenting to the emergency department for chief complaint of epigastric discomfort. Patient states this is been going on for the past 2 months. States today when he woke up he had worsening symptoms including some worsening nausea and vomiting. Physical exam shows mild to moderate epigastric tenderness but negative Polanco sign, no hepatosplenomegaly or that I can appreciate on exam, abdomen otherwise soft nontender with normal active bowel sounds and exam is otherwise unremarkable. Patient does state that he drinks a lot of caffeine on an empty stomach, reports heavy tobacco use, and takes most of his meds on an empty stomach. I suspect gastritis but will check labs just to make sure patient does not have any pancreatitis. Patient denies any alcohol use but does state history of hepatitis C and history of alcohol abuse but none for years. Patient does have history of hepatitis C and GERD listed on medical history. Pending results will give GI cocktail and Compazine. Review of patient's labs show slight leukocytosis of 11.26 and slight elevation of neutrophils and low lymphocytes, CMP shows BUN of 28 otherwise normal creatinine, glucose 116, magnesium 1.7, AST is elevated to 77 and ALT of 173 but bilirubin is normal alk phos is normal and lipase is normal at 46. Patient was reassessed and states improvement of symptoms. I do feel this is reassuring and do not feel that patient requires emergent advanced imaging but will start patient on famotidine and Carafate and discussed lifestyle changes for things it may be contributing to patient's symptoms. Did recommend that patient follows with primary care provider for reassessment especially if symptoms continue for further evaluation. Also recommended follow-up for reassessment of liver enzymes given history of hepatitis but at this time I do not feel that further investigation is needed on an emergency basis. After discussion of diagnosis and plan of care patient has no further needs, questions, or concerns and states clear understanding to return to the emergency department for any worsening symptoms. This documentation was generated using [employer] system, please disregard any oddities of phrase or misspellings. HPI General Mode of arrival: ambulatory . Date/Time Provider Initiated Documentation: 07/13/22 19:04 . Limitations to Documentation: no limitations . Information obtained by: patient, RN notes reviewed and old records reviewed . History of Present Illness 46 year old M presents to the emergency department with the chief complaint of Abdominal discomfort, described as moderate and similar to prior episodes, with intensity rated at 5. Quality is described as aching, and is localized to the abdomen. Patient reports no radiation. Patient started experiencing this month(s) (2) and it has been intermittent. No relieving factors improve symptom(s), No exacerbating factors reported . Patient did receive the following treatments prior to arrival, none Related Data Home Medications Medication Instructions Recorded Confirmed buspirone 30 mg tablet 15 mg PO BID 10/10/12 07/13/22 quetiapine 25 mg tablet 400 mg PO BID 10/10/12 07/13/22 carbamazepine 200 mg tablet 400 mg PO BID 11/16/12 07/13/22 (Tegretol) clonazepam 1 mg tablet 1 tab PO BID 06/02/14 07/13/22 lisinopril 5 mg tablet 5 mg PO DAILY 05/01/18 07/13/22 methadone 10 mg tablet 120 mg BID 12/17/21 07/13/22 levothyroxine 88 mcg tablet 88 mcg PO DAILY 02/24/22 07/13/22 famotidine 40 mg tablet (Pepcid) 40 mg PO DAILY #30 tabs 07/13/22 sucralfate 1 gram tablet (Carafate) 1 g PO BID #30 tabs 07/13/22 Previous Rx's Medication Instructions Recorded famotidine 40 mg tablet (Pepcid) 40 mg PO DAILY #30 tabs 07/13/22 sucralfate 1 gram tablet (Carafate) 1 g PO BID #30 tabs 07/13/22 Allergies Allergy/AdvReac Type Severity Reaction Status Date / Time divalproex sodium AdvReac Intermediate Unverified 07/13/22 18:29 [From [facility]] General Stated Complaint: Abd Prob RAMU: 3 Review of Systems Constitutional Constitutional: Denies chills, Denies fever(s) and Reports poor appetite Cardiovascular Cardiovascular: Denies chest pain and Denies dyspnea Respiratory Respiratory: Denies cough and Denies dyspnea Gastrointestinal Gastrointestinal: Reports as per HPI, Reports abdominal pain, Denies melena, Denies change in bowel habits, Denies constipation, Reports heartburn, Denies diarrhea, Reports nausea and Reports vomiting Genitourinary Genitourinary: Denies hematuria, Denies difficulty urinating, Denies urinary hesitancy, Denies urinary incontinence and Denies urinary urgency Integumentary/Breasts Skin/Breast: Denies rash PFSH All Active Problems (Updated 07/13/22 @ 21:11 by Delfino Brice NP) Gastritis (Acute) Medical History (Updated 07/13/22 @ 21:11 by Delfino Brice NP) Benign hypertension Bipolar disorder Surgical History Bankart repair (11/19/12) Left shoulder EXCISION OSTEOCHONDROMA (10/17/12) RIGHT TIBIA Social History Smoking/Tobacco Use Status: Current every day Tobacco Type: cigarettes Smoking risk assessment performed?: Yes Alcohol Intake: never Drug use: Rarely Substance use type: marijuana Do you feel safe at home: Yes Do you feel safe in your relationship?: Yes Exam Const General: cooperative Orientation: alert, awake and oriented x3 Resp Effort & Inspection: normal respiratory effort and able to speak in complete sentences Auscultation: clear to auscultation bilaterally Cardio Rate: regular rate Rhythm: regular rhythm Heart Sounds: S1 normal and S2 normal GI Palpation: soft, no hepatosplenomegaly, not firm, no guarding, no masses, no pulsatile masses, not rigid, no splenomegaly and tender in the epigastrum Auscultation: normal bowel sounds Back/Spine/Pelvis Back: no CVA tenderness Neuro General: patient alert, patient awake, patient oriented x3, gait normal and moves all extremities Course Vital Signs Vital signs: Vital Signs Temperature 36.3 C L 07/13/22 18:23 Pulse 56 L 07/13/22 18:23 Respiratory Rate 20 07/13/22 18:23 Blood Pressure 163/102 H 07/13/22 18:23 Pulse Oximetry 97 07/13/22 18:23 Temperature 36.3 C L 07/13/22 18:23 Temperature Source Temporal Artery Scan 07/13/22 18:23 Pulse 56 L 07/13/22 18:23 Respiratory Rate 20 07/13/22 18:23 Respiratory Effort Non-Labored 07/13/22 18:27 Blood Pressure 163/102 H 07/13/22 18:23 Blood Pressure Position Sitting 07/13/22 18:23 Pulse Oximetry 97 07/13/22 18:23 Oxygen Delivery Method Room Air 07/13/22 18:23 Oxygen Flow Rate 0 07/13/22 18:23 Pain Level 4 07/13/22 18:23 Lab/Test Results Lab/Test Results: Laboratory Tests Range/Units 07/13/22 07/13/22 20:19 20:19 WBC (4.4-10.8) 10^3/uL 11.26 H RBC (4.36-5.78) 10^6/uL 5.51 Hgb (13.5-17.5) g/dL 16.2 Hct (40.0-50.0) % 47.5 MCV (80-95) fL 86 MCH (27.0-33.0) pg 29.4 MCHC (32.0-36.0) % 34.1 RDW (11.8-14.1) % 11.9 Plt Count (130-400) 10^3/uL 211 MPV (8.0-11.0) fL 9.9 Immature Gran % 0.3 Neutrophils % 82.7 Lymphocytes % 10.1 Monocytes % 5.8 Eosinophils % 0.8 Basophils % 0.3 Nucleated RBC % (0.0-0.3) % 0.0 Absolute Neutrophils (1.2-6.7) 10^3/uL 9.31 H Absolute Lymphocytes (1.2-3.4) 10^3/uL 1.14 L Absolute Monocytes (0.1-0.8) 10^3/uL 0.65 Absolute Eosinophils (0.0-0.7) 10^3/uL 0.09 Absolute Basophils (0.0-0.2) 10^3/uL 0.03 Sodium (136-145) mmol/L 139 Potassium (3.5-5.1) mmol/L 3.9 Chloride (98-107) mmol/L 103 Carbon Dioxide (21.0-32.0) mmol/L 29.8 Anion Gap (3-11) mmol/L 6.2 BUN (7-18) mg/dL 28 H Creatinine (0.70-1.30) mg/dL 0.8 Est GFR (CKD-EPI 2020) (mL/min/1.73m2) 110.53 Glucose (74-106) mg/dL 116 H Calcium (8.5-10.1) mg/dL 8.7 Magnesium (1.8-2.4) mg/dL 1.7 L Total Bilirubin (0.2-1.0) mg/dL 0.4 AST (15-37) U/L 77 H ALT (16-63) U/L 173 H Alkaline Phosphatase (46-116) U/L 102 Total Protein (6.4-8.2) g/dL 8.0 Albumin (3.4-5.0) g/dL 3.7 Lipase (73-393) U/L 46
[2022-07-13] MEDS: Prochlorperazine 5 MG TAB PO (21:10)
[2022-07-13] MEDS: Lidocaine 2% Viscous 1 ML Solution (21:10)
== END 2022-07-13 21:21 | disposition home or self-care (01) ==
PROVIDERS: Emergency Provider Nurse Practitioner Family; PCP Family Medicine
DX: K29.70 Gastritis, unspecified, without bleeding (principal); D72.829 Elevated white blood cell count, unspecified; R74.01 Elevation of levels of liver transaminase levels; I10 Essential (primary) hypertension
CPT/HCPCS: 80053; 83690; 99283; 83735; 85025; 99284

== ENCOUNTER 2022-10-25 16:27 | Outpatient (REF) | payer MEDICARE, MEDICAID, SELFPAY ==
[2022-10-25 19:14] LABS: HCT 43.5 % (40.0-50.0); HGB 14.8 g/dL (13.5-17.5); MCH 29.9 pg (27.0-33.0); MCV 88 fL (80-95); MPV 10.1 fL (8.0-11.0); Platelet Count 220 10^3/uL (130-400); RBC 4.95 10^6/uL (4.36-5.78); RDW 11.9 % (11.8-14.1); RDW-SD 38.2 fL; WBC 5.43 10^3/uL (4.4-10.8)
[2022-10-25 19:47] LABS: Hemoglobin A1C 5.6 % (<5.7)
[2022-10-25 19:54] LABS: ALT 208 U/L (16-63); AST 76 U/L (15-37); Albumin 3.9 g/dL (3.4-5.0); Alkaline Phosphatase 97 U/L (46-116); Anion Gap 5.6 mmol/L (3-11); BUN 16 mg/dL (7-18); Bilirubin, Total 0.2 mg/dL (0.2-1.0); CO2 32.4 mmol/L (21.0-32.0); CREATININE 1.1 mg/dL (0.70-1.30); Calcium 8.8 mg/dL (8.5-10.1); Calculated LDL 109 mg/dL (<100); Chloride 104 mmol/L (98-107); Cholesterol 192 mg/dL (<200); Estimated GFR 83.84 (mL/min/1.73m2); Glucose 84 mg/dL (74-106); HDL Cholesterol 53 mg/dL (40-60); Potassium 4.2 mmol/L (3.5-5.1); Sodium 142 mmol/L (136-145); TSH (W/Ref FT4) 1.97 uIU/mL (0.36-3.74); Total Protein 7.6 g/dL (6.4-8.2); Triglyceride 150 mg/dL (<150)
[2022-10-27 10:45] LABS: HIV-1/2 Ag & Ab Screen Negative (Negative)
[2022-10-27 11:17] LABS: Hepatitis A Antibody IgM Negative (Negative); Hepatitis B Core Antibody Negative (Negative); Hepatitis B surface Ag Negative (Negative); Hepatitis C Ab w Rflx HCV PCR Reactive (Negative)
[2022-10-28 12:34] LABS: HCV RNA Detection Quantitative 7330000 IU/mL (Undetected); HCV RNA Qualitative Detected (Undetected)
== END 2022-10-25 16:28 | disposition home or self-care (01) ==
LOC: NCHCN 16:27
PROVIDERS: PCP Family Medicine; Visit Provider Family Medicine
DX: B18.2 Chronic viral hepatitis C (principal); E03.9 Hypothyroidism, unspecified; Z11.4 Encounter for screening for human immunodeficiency virus [HIV]; E78.5 Hyperlipidemia, unspecified; R79.89 Other specified abnormal findings of blood chemistry
CPT/HCPCS: 80053; 80061; 85027; 86704; 86709; 86803; 87340; 87389; 87522; 83036; 84443

== ENCOUNTER 2023-05-19 07:58 | Emergency (ER) | payer MEDICARE, MEDICAID, SELFPAY ==
[2023-05-19 08:03] VITALS: BP 168/117; PULSE 73; RESP 18; TEMP 36.8; O2SAT 97
--- NOTE | 2023-05-19 08:22 | ED.GENADUL_ITS ---
Discharge Plan Disposition Patient Disposition: Home Discharge Details Clinical Impression: Gastritis Primary Care Provider: Eugenio Loving ED Provider: Delfino Brice Home Meds and New Rx's Prescriptions: New famotidine 40 mg tablet 40 mg PO DAILY Qty: 30 1RF sucralfate [Carafate] 1 gram tablet 1 g PO BID Qty: 60 1RF Continued buspirone 30 mg tablet 30 mg PO BID esomeprazole magnesium 40 mg capsule,delayed release(DR/EC) 40 mg PO DAILY quetiapine 50 mg tablet 50 mg PO BID chlorhexidine gluconate 0.12 % mouthwash 15 ml mucous membrane BID methadone 10 mg/5 mL solution 120 mg PO BID hydroxyzine HCl 50 mg tablet 100 mg PO DAILY PRN carbamazepine [Tegretol] 200 MG tablet 400 mg PO BID clonazepam 1 MG tablet 0.5 mg PO BID levothyroxine 88 mcg tablet 88 mcg PO DAILY Discharge Instructions Instructions: Gastritis (ED) Additional Instructions: As discussed please continue to monitor your stools and if you notice any significant worsening of symptoms lightheadedness dizziness or severe unrelenting abdominal pain please return to the emergency department for reassessment. Take your normally prescribed medications along with your new medications to see if this helps your stomach pain/indigestion. Please continue to follow-up with general surgery as previously arranged for further testing and evaluation of your stomach pain. Stand Alone Forms: Work Release Referrals: [facility] [Provider Group] Discharge Data Discharge Date/Time-TO BE ENTERED AT DEPARTURE: 05/19/23 10:09 Medical Decision Making Patient presenting to the emergency department for chief complaint of epigastric pain. Patient states this has been going on for a while and approximately 5 months ago he was supposed to have an upper endoscopy but because symptoms had subsided at that time decided not to. Patient was seen by myself in June 2022 and since then states he has reduced caffeine intake and tobacco use. He states his main concern today was that he had been eating a cotton candy colored ice cream and noted some green stools and some increased abdominal discomfort. He took some Pepto-Bismol over the last couple days and noted significantly darkened stool. Does state that his daily methadone does help significantly with his symptoms. He also does have a appointment for the endoscopy in 2 weeks. Patient has significant past medical history of GERD, hepatitis C, previous alcohol abuse, on methadone. Physical exam is positive for epigastric tenderness but abdomen is otherwise nonperitoneal soft with no positive Polanco sign or peritoneal findings. Patient deferred rectal exam/Hemoccult stool test for abnormal stool color. We will plan on checking labs but given chronicity of complaint, stool color change with food and or Pepto-Bismol. Pending results will give Carafate and famotidine Labs reviewed and are very reassuring, CBC is overall unremarkable with no signs of anemia and normal hemoglobin/ hematocrit. CMP appears close to patient's baseline which does show some liver enzyme abnormalities that have been present in the past but actually today looks slightly better than previous test. Labs are otherwise noncontributory. Lipase is 25. Reassessed patient and patient does state significant improvement of symptoms. He again is deferring any rectal examination which given the chronicity of complaint and having a normal CBC I do not feel it is emergent that we perform this test as I do suspect color change from food or Pepto-Bismol. Patient encouraged to keep follow-up appointment with general surgery for upper endoscopy due to gastritis and return for new or worsening symptoms. After discussion of diagnosis and plan of care patient has no further needs, questions, or concerns and states clear understanding to return to the emergency department for any worsening symptoms. This documentation was generated using [employer] dictation system, please disregard any oddities of phrase or misspellings. Lab Data Lab results reviewed: Yes I reviewed the patient's lab results. HPI General Mode of arrival: ambulatory . Date/Time Provider Initiated Documentation: 05/19/23 08:06 . Limitations to Documentation: no limitations . Information obtained by: patient and RN notes reviewed . History of Present Illness 47 year old M presents to the emergency department with the chief complaint of Epigastric pain, abnormal colored stools, described as moderate and similar to prior episodes, Quality is described as aching, and is localized to the abdomen. Patient reports no radiation. Patient started experiencing this year(s) and it has been constant and intermittent. Medication improves symptom(s), (Methadone helps) Eating worsens symptoms (Colored ice cream) and Medication worsens symptoms (Daily psych meds) . Patient notes no other symptoms.. Patient did receive the following treatments prior to arrival, none Related Data Home Medications Medication Instructions Recorded Confirmed carbamazepine 200 mg tablet 400 mg PO BID 11/16/12 05/19/23 (Tegretol) clonazepam 1 mg tablet 0.5 mg PO BID 06/02/14 05/19/23 levothyroxine 88 mcg tablet 88 mcg PO DAILY 02/24/22 05/19/23 buspirone 30 mg tablet 30 mg PO BID 11/11/22 05/19/23 chlorhexidine gluconate 0.12 % 15 ml mucous membrane BID 11/11/22 05/19/23 mouthwash esomeprazole magnesium 40 mg 40 mg PO DAILY 11/11/22 05/19/23 capsule,delayed release hydroxyzine HCl 50 mg tablet 100 mg PO DAILY PRN 11/11/22 05/19/23 methadone 10 mg/5 mL oral solution 120 mg PO BID 11/11/22 05/19/23 quetiapine 50 mg tablet 50 mg PO BID 11/11/22 05/19/23 famotidine 40 mg tablet 40 mg PO DAILY #30 tabs 05/19/23 sucralfate 1 gram tablet (Carafate) 1 g PO BID #60 tabs 05/19/23 Previous Rx's Medication Instructions Recorded famotidine 40 mg tablet 40 mg PO DAILY #30 tabs 05/19/23 sucralfate 1 gram tablet (Carafate) 1 g PO BID #60 tabs 05/19/23 Allergies Allergy/AdvReac Type Severity Reaction Status Date / Time divalproex sodium AdvReac Intermediate Unverified 05/19/23 08:07 [From [facility]] General Stated Complaint: Abd Prob RAMU: 3 Review of Systems Constitutional Constitutional: Denies chills, Denies fever(s) and Denies poor appetite ENT Ears, Nose, Mouth, and Throat: Denies sore throat Cardiovascular Cardiovascular: Denies chest pain and Denies dyspnea Respiratory Respiratory: Denies cough and Denies dyspnea Gastrointestinal Gastrointestinal: Reports as per HPI, Reports abdominal pain, Denies change in bowel habits, Reports change in stool character, Denies constipation, Reports heartburn, Denies diarrhea and Denies vomiting Genitourinary Genitourinary: Denies hematuria and Denies difficulty urinating Integumentary/Breasts Skin/Breast: Denies rash PFSH All Active Problems (Updated 05/19/23 @ 09:44 by Delfino Brice NP) Gastritis (Acute) Akathisia (Acute) Medical History Alcohol abuse, in remission Hepatitis C, chronic Hypothyroidism Erectile dysfunction Eczema Hyperlipidemia Opioid dependence Testicular pain, left Dental caries Bipolar disorder Benign hypertension Surgical History EXCISION OSTEOCHONDROMA (10/17/12) RIGHT TIBIA Bankart repair (11/19/12) Left shoulder Social History Smoking/Tobacco Use Status: Current every day Tobacco Type: cigarettes Smoking risk assessment performed?: Yes Alcohol Intake: never Drug use: Rarely Substance use type: marijuana Do you feel safe at home: Yes Do you feel safe in your relationship?: Yes Exam Const General: cooperative Orientation: alert, awake and oriented x3 Resp Effort & Inspection: normal respiratory effort and able to speak in complete sentences Auscultation: clear to auscultation bilaterally Cardio Rate: regular rate Rhythm: regular rhythm Heart Sounds: S1 normal and S2 normal GI Palpation: soft, no hepatosplenomegaly, not firm, no guarding, no masses, no pulsatile masses, not rigid, no splenomegaly and tender in the epigastrum Auscultation: normal bowel sounds Neuro General: patient alert, patient awake, patient oriented x3, gait normal and moves all extremities Course Vital Signs Vital signs: Vital Signs Temperature 36.8 C 05/19/23 08:03 Pulse 73 05/19/23 08:03 Respiratory Rate 18 05/19/23 08:03 Blood Pressure 168/117 H 05/19/23 08:03 Pulse Oximetry 97 05/19/23 08:03 Temperature 36.8 C 05/19/23 08:03 Temperature Source Oral 05/19/23 08:03 Pulse 73 05/19/23 08:03 Respiratory Rate 18 05/19/23 08:03 Blood Pressure 168/117 H 05/19/23 08:03 Blood Pressure Position Sitting 05/19/23 08:03 Pulse Oximetry 97 05/19/23 08:03 Oxygen Delivery Method Room Air 05/19/23 08:03 Oxygen Flow Rate 0 05/19/23 08:03 Pain Level 3 05/19/23 08:03
[2023-05-19] MEDS: Sucralfate 1 GM TAB PO (08:48)
[2023-05-19 08:49] VITALS: BP 149/98; PULSE 72; RESP 18; TEMP 36.8; O2SAT 95
[2023-05-19 09:04] LABS: Abs Immature Grans 0.01 10^3/uL (0.0-0.06); Absolute Basophil Count 0.06 10^3/uL (0.0-0.2); Absolute Eosinophil Count 0.24 10^3/uL (0.0-0.7); Absolute Lymphocyte Count 1.41 10^3/uL (1.2-3.4); Absolute Monocyte Count 0.49 10^3/uL (0.1-0.8); Absolute Neutrophil Count 2.99 10^3/uL (1.2-6.7); Basophils % 1.2; Eosinophils % 4.6; HCT 42.9 % (40.0-50.0); HGB 14.3 g/dL (13.5-17.5); Immature Grans % 0.2; Lymphocytes % 27.1; MCH 28.9 pg (27.0-33.0); MCHC 33.3 % (32.0-36.0); MCV 87 fL (80-95); Monocytes % 9.4; Neutrophils % 57.5; RBC 4.94 10^6/uL (4.36-5.78); RDW-SD 38.4 fL
[2023-05-19] MEDS: Normal Saline 1,000 ML 1000 ML IV (09:15)
[2023-05-19] MEDS: FAMOTIDINE 20 MG/50 ML BAG 196.078 MG IVPB (09:15)
[2023-05-19 09:21] LABS: ALT 108 U/L (16-63); AST 57 U/L (15-37); Albumin 3.4 g/dL (3.4-5.0); Alkaline Phosphatase 90 U/L (46-116); Anion Gap 3.2 mmol/L (3-11); BUN 19 mg/dL (7-18); Bilirubin, Total 0.2 mg/dL (0.2-1.0); CO2 32.8 mmol/L (21.0-32.0); CREATININE 0.9 mg/dL (0.70-1.30); Calcium 9.3 mg/dL (8.5-10.1); Chloride 100 mmol/L (98-107); Estimated GFR 106.01 (mL/min/1.73m2); Glucose 117 mg/dL (74-106); Lipase 25 U/L (16-77); Magnesium 2.1 mg/dL (1.8-2.4); Potassium 4.2 mmol/L (3.5-5.1); Sodium 136 mmol/L (136-145); Total Protein 7.7 g/dL (6.4-8.2)
[2023-05-19 09:22] LABS: Diff Comment Diff Reviewed; RBC Morphology Normal
[2023-05-19 10:07] VITALS: BP 147/87; PULSE 79; RESP 18; O2SAT 97
== END 2023-05-19 10:09 | disposition home or self-care (01) ==
PROVIDERS: Emergency Provider Nurse Practitioner Family; PCP Family Medicine
DX: K29.70 Gastritis, unspecified, without bleeding (principal); I10 Essential (primary) hypertension; B18.2 Chronic viral hepatitis C; F17.210 Nicotine dependence, cigarettes, uncomplicated
CPT/HCPCS: 80053; 83690; 96361; 96374; 99283; 83735; 85025

== ENCOUNTER → 2023-05-30 14:31 | Outpatient (BNVA) | payer MEDICARE, MEDICAID, SELFPAY | PROVIDERS: PCP Family Medicine; Referring Provider Family Medicine; Visit Provider Surgery | DX: K29.50 Unspecified chronic gastritis without bleeding (principal); B18.2 Chronic viral hepatitis C; Z12.11 Encounter for screening for malignant neoplasm of colon; Z12.12 Encounter for screening for malignant neoplasm of rectum | CPT/HCPCS: 99214 ==

== ENCOUNTER 2023-06-28 11:34 | Day surgery (SDC) | payer MEDICARE, MEDICAID, SELFPAY ==
--- NOTE | 2023-06-28 10:12 | W.PM.ENDDOP ---
Date of service: 06/28/23 Time of Service: 13:12 Endoscopy Report DATE OF PROCEDURE: 06/28/23 PRE-OP DIAGNOSIS: epigastric pain POST-OP DIAGNOSIS: other (gastritis and reflux) PROCEDURE: EGD with biopsies SURGEON: Nadja Carreno ANESTHESIA TYPE: General:No Airway ESTIMATED BLOOD LOSS: 3 PATHOLOGY: other (Bx of antrum and esophagus at 40 and 38 cm) COMPLICATIONS: None DISPOSITION: same day INDICATIONS: Mr. Mcginnis is a pleasant 47-year-old gentleman with epigastric pain for at least 7 months. He wonders whether it is the methadone that is causing his issues. He is trying to get tapered off at this point. We discussed the upper endoscopy in detail again and the possible complications and he wished to proceed. FINDINGS: Mild gastritis Evidence of esophagitis and reflux PROCEDURE DESCRIPTION: After informed consent was obtained the patient was take to the procedure room and placed in a supine position. Monitors were applied and a time out was done. The patients name, date of , procedure type, allergies to medications and metal in their body was reviewed. A bite block was placed and the patient was sedated. Once sedated and comfortable the gastroscope was advanced through the oropharynx which was grossly normal into the esophagus. The proximal and mid-esophagus were normal. In the distal esophagus there was inflammation and signs of reflux noted. The scope was advanced into the stomach and through the pylorus into the 3rd portion of the duodenum. The duodenum was noted to be normal. The scope was retracted back into the stomach and biopsies were done to rule out H. pylori. There were no ulcers. The scope was retroflexed. The cardia and fundus were noted to be normal. There was no hiatal hernia noted. The scope was retracted back into the esophagus and biopsies were done of the GE junction to rule out Hale's. The Z line was irregular. The GE junction was at 42 cm. The scope was removed and the patient was woken up and taken back to [facility] in stable condition. Follow up: 2 weeks
--- NOTE | 2023-06-28 10:15 | PDOC.DSDIS_ITS ---
Date of service: 06/28/23 Time of Service: 13:12 Discharge Plan Disposition Patient Disposition: Home Condition: Stable Discharge Details Reason For Visit: epigastric pain Attending Provider: Nadja Carreno Primary Care Provider: Eugenio Loving Home Meds and New Rx's Prescriptions: New omeprazole 40 mg capsule,delayed release(DR/EC) 40 mg PO DAILY Qty: 30 0RF Continued buspirone 30 mg tablet 30 mg PO BID chlorhexidine gluconate 0.12 % mouthwash 15 ml mucous membrane BID methadone 10 mg/5 mL solution 120 mg PO BID hydroxyzine HCl 50 mg tablet 100 mg PO DAILY PRN carbamazepine [Tegretol] 200 MG tablet 400 mg PO BID clonazepam 1 MG tablet 0.5 mg PO BID sucralfate [Carafate] 1 gram tablet 1 g PO BID Qty: 60 1RF Discontinued famotidine 40 mg tablet 40 mg PO DAILY Qty: 30 1RF Patient Comments: Pt. states he misplaced this and has not been taking it. Discharge Instructions Instructions: Gastritis (DC), Diet for Stomach Ulcers and Gastritis (ED), Esophagitis (DC) Additional Instructions: Findings: Mild inflammation in the stomach Reflux and mild inflammation of the esophagus Follow up: 2 weeks new Medication: Start Omeprazole 40 mg daily Stop Famotidine Please call if you develop: fevers >101.5 Nausea or Vomiting Abdominal pain that is not transient Rectal bleeding that is more then a tbsp A hard abdomen and inability to pass gas DAY SURGERY UNIT POST ENDOSCOPY INSTRUCTIONS Instructions for everyone who is given Anesthesia: For your safety, please do the following for the next 24 Hours: a. Do not drive or operate dangerous equipment b. Do not drink alcohol beverages or use any recreational drugs for the first 24 hours or while taking pain medications. The medications in your body may have a reaction that can be dangerous. c. Do not make any important decisions or sign any important papers 1. Generally there are no restrictions on your activity after a day or so has gone by, but you may feel a bit fatigued for a few days. 2. After you arrive home you may have a light meal and return to a normal diet as you can tolerate it without feeling sick to your stomach. 3. After surgery, you may feel pain or discomfort. This should be only transient, but if it persists please contact your doctor. 4. If there are any questions regarding the findings of your procedure, please feel free to contact your doctor. 6. If you are unable to contact your doctor with a problem, contact the hospital at [phone]. 7. Continue all your regular medications unless directed otherwise. I understand the above instructions and have no questions. Signature of Patient or Responsible Adult Escort Date/Time Name of Responsible Adult Escort Signature of Nurse Date/Time Referrals: Nadja Carreno MD [ [facility] STAFF PHYSICIAN] - Activity:: Activity as Tolerated Diet:: As Tolerated DS: Diagnosis Discharge Diagnosis (1) Gastritis: Status: Acute Asessment and Plan: Patient is seen and examined after their endoscopy. Patient has minimal sore throat. They have been able to tolerate liquids. They do not have any Nausea or Vomiting. They are not having any chest pain or shortness of breath. They have been able to pass gas and are not having any abdominal pain or distention. they have not vomited any blood. The vital signs have been stable-see nursing notes. We discussed findings on their endoscopy We reviewed the importance of lifestyle modifications- see diet recommendations We reviewed any new medications that the patient may be prescribed- see medicine reconciliation. Patient will either be sent a letter with the biopsy results or follow up in the office- see discharge instructions Patient was given explicit instructions for emergency follow up post endoscopy- see discharge instructions Patient verbalized understanding and was discharged in stable and satisfactory condition. See nursing notes.
[2023-06-28 11:53] VITALS: BP 142/85; PULSE 85; RESP 16; TEMP 35.3; O2SAT 96
[2023-06-28] MEDS: Lactated Ringers 1,000 ML 80 ML IV (12:10)
--- NOTE | 2023-06-28 12:22 | W.ANESPRE ---
General Info Date of Service Date Performed: 06/28/23 Height: 5 ft 6 in Weight: 98.6 kg Body Mass Index (BMI): 35.1 Surgical Procedure: Operation Date: 06/28/23 12:20 Proposed Procedure Side Surgeon p Gastroscopy Nadja Carreno MD Meds Allergies and Home Medications Allergies Allergy/AdvReac Type Severity Reaction Status Date / Time divalproex sodium AdvReac Severe GI upset Unverified 06/28/23 11:49 [From [facility]] Home Medication Medication Instructions Recorded carbamazepine 200 mg tablet 400 mg PO BID 11/16/12 (Tegretol) clonazepam 1 mg tablet 0.5 mg PO BID 06/02/14 buspirone 30 mg tablet 30 mg PO BID 11/11/22 chlorhexidine gluconate 0.12 % 15 ml mucous membrane BID 11/11/22 mouthwash hydroxyzine HCl 50 mg tablet 100 mg PO DAILY PRN 11/11/22 methadone 10 mg/5 mL oral solution 120 mg PO BID 11/11/22 famotidine 40 mg tablet 40 mg PO DAILY #30 tabs 05/19/23 sucralfate 1 gram tablet (Carafate) 1 g PO BID #60 tabs 05/19/23 Current Visit Medications: Current Medications Generic Name Dose Route Start Last Admin Trade Name Freq PRN Reason Stop Dose Admin Ringer's Solution 1,000 mls @ 80 mls/hr 06/28/23 06:00 06/28/23 12:10 IV 07/27/23 23:59 80 mls/hr INFUSION SATYA Administration IV Miscellaneous Supplies 1 each 06/28/23 06:00 Iv Access IV 07/27/23 23:59 DIRECTED SATYA Ondansetron HCl 4 mg 06/28/23 10:11 Ondansetron 4 Mg/2 Ml Vial IVP 07/28/23 10:10 Q4H PRN PRN Nausea / Vomiting Sodium Chloride 0 ml 06/28/23 06:00 Normal Saline Flush 10 Ml Syr IV 07/27/23 23:59 PRN PRN Sodium Chloride 0 ml 06/28/23 06:00 Normal Saline 10 Ml Vial IJ 07/27/23 23:59 DIRECTED PRN Sterile Water 0 ml 06/28/23 06:00 Water,Injection,Sterile 10 Ml Vial IJ 01/11/24 23:59 DIRECTED PRN PFSH Active Problems Active Problems: Problem Status Onset Code Encounter for colorectal cancer screening Z12.11, Z12.12 Bipolar 1 disorder F31.9 Akathisia G25.71 Gastritis K29.70 Medical History Medical History Alcohol abuse, in remission Hepatitis C, chronic Pt. states not taking levothyroxine Hypothyroidism Erectile dysfunction Eczema Hyperlipidemia Opioid dependence Testicular pain, left Dental caries Benign hypertension Surgical History Surgical History EXCISION OSTEOCHONDROMA (10/17/12) RIGHT TIBIA Bankart repair (11/19/12) Left shoulder Tobacco Smoking/Tobacco Use Status: Current every day Tobacco Type: cigarettes Smoking cigarettes per day: 15 Alcohol Alcohol Intake: never Substance Use Substance use: Daily Substance use type: marijuana Vital Signs and Lab Results Vital Signs Most Recent Vital Signs in EMR: Most Recent Vital Signs Temp Pulse Resp BP Pulse Ox 35.3 C L 85 16 142/85 H 96 06/28/23 11:53 06/28/23 11:53 06/28/23 11:53 06/28/23 11:53 06/28/23 11:53 Lab Results Blood Type / Crossmatch: No Data to Display Complete Blood Count: No Data to Display Complete Metabolic Panel: No Data to Display Liver Function Panel: No Data to Display Coagulation Panel: No Data to Display Cardiac Panel: No Data to Display Arterial Blood Gas: No Data to Display Venous Blood Gas: No Data to Display Pancreas Panel: No Data to Display Thyroid Panel: No Data to Display Infectious Disease: No Data to Display Blood Cultures: No Data to Display Toxicology Panel: No Data to Display Anesthesia Assessment and Plan Anesthesia History Personal History: No History of General Anesthesia Family History: No Family History of Anesthesia Complications and Family History Unknown Exercise Tolerance Exercise Tolerance: Metabolic Equivalents>4 Pertinent Negatives Pertinent Negatives: No Major Cardiovascular Symptoms or Complaints, No Major Pulmonary Symptoms or Complaints and No History of CVA/TIA Cardiac & Pulmonary Exam Cardiac Exam: Normal S1/S2 Heart Sounds Pulmonary Exam: Clear Bilateral Breath Sounds Implantable Cardiac Device Does patient have a Pacemaker or an ICD?: No Airway Exam Known Difficult Airway: No Mallampati Class: 2 Mouth Opening: Normal (> 3cm) Thyromental Distance: Greater than 3 cm Neck Range of Motion: Full ROM Neck Circumference: Normal Teeth Condition: Normal Dentition and Loose or Chipped (bottom front teeth chipped) ASA Classification ASA Score: ASA 2 Emergency Case?: No NPO Status NPO Status: NPO Clears >2 hours, Solids >8 hours Anesthesia Plan Resuscitation Status: Full Code Anesthesia Technique: General Anesthesia Airway Planned: Natural Airway Monitors Used: Standard Monitors
[2023-06-28 12:27] VITALS: BMI 35.1
--- NOTE | 2023-06-28 13:03 | STOM_PTH ---
PATIENT: Babatunde Mcginnis LOC: [facility] U#:[id number] AGE/SX: 47/M ROOM: RE06/28/[address]: Nadja Carreno MD : 1975 BED: DIS: 06/28/2023 SPEC #: [id number] RECD: 06/28/23 17:46 STATUS: SRINI RE #: [id number] CHARMAINE: 06/28/23 13:[address]: Nadja Carreno DEPT: Surgical Specimen RECD BY: Trini Wilson ENTERED: 06/28/23 17:48 SP TYPE: STOMACH OTHR DR: Eugenio Loving Tissues: 1 - STOMACH BIOPSY 2 - ESOPHAGUS BIOPSY 3 - ESOPHAGUS BIOPSY Procedures: GROSS AND MICRO LEVEL 4 Comments: [id number]
[2023-06-28 13:16] VITALS: BP 116/76; PULSE 68; RESP 16; TEMP 36.5; O2SAT 94
[2023-06-28 13:57] VITALS: BP 112/95; PULSE 66; RESP 16; TEMP 36.4; O2SAT 99
--- NOTE | 2023-06-28 14:37 | W.ANESPOSTOP ---
Postoperative Evaluation Date, Time and Location Date Performed: 06/28/23 Time Performed: 14:00 Patient Location: Day Surgery Unit Vital Signs Most Recent Imported Vital Signs: Most Recent Vital Signs Temp Pulse Resp BP Pulse Ox 36.4 C L 66 16 112/95 H 99 06/28/23 13:57 06/28/23 13:57 06/28/23 13:57 06/28/23 13:57 06/28/23 13:57 Assessment Mental Status: Awake (Alert & Oriented to Patient Baseline) Airway and Respiratory Function: Patent airway with normal (patient baseline) respiratory exam Cardiovascular Function: Hemodynamically Stable Hydration Status: Adequately Hydrated Nausea & Vomiting: No Nausea or Vomiting Pain: Pt. Denies Any Pain Peripheral Nerve Block: Patient did not receive a nerve block
== END 2023-06-28 11:35 | disposition home or self-care (01) ==
LOC: SUR 11:34
PROVIDERS: PCP Family Medicine; Visit Provider Surgery
PROC: 0DJ68ZZ Inspection of Stomach, Via Natural or Artificial Opening Endoscopic (ICD-10-PCS; CPT 43235; principal; 2023-06-28 12:15)
DX: K21.00 Gastro-esophageal reflux disease with esophagitis, without bleeding (principal); K22.89 Other specified disease of esophagus
CPT/HCPCS: 43239; 88305; J2250

== ENCOUNTER 2023-07-03 13:26 | Emergency (ER) | payer MEDICARE, MEDICAID, SELFPAY ==
[2023-07-03 13:37] VITALS: BP 183/113; PULSE 94; RESP 18; TEMP 36.3; O2SAT 95
--- NOTE | 2023-07-03 15:00 | DI.RAD_ITS ---
Exam(s) XR HAND LT COMPLETE EXAM: XR HAND LT COMPLETE CLINICAL HISTORY: Palmar laceration toilet fragments. TECHNIQUE: 2D digital imaging was performed of the left hand. Three views were obtained. AP, later al and oblique views were obtained. COMPARISON: No exams were available for comparison FINDINGS: BONES: No acute fracture is present. No bony destructive lesion is seen. JOINTS: No dislocation present. SOFT TISSUE: Normal. No radiopaque foreign bodies are seen in the soft tissues. IMPRESSION: No acute fracture or dislocation. No radiopaque foreign bodies are present in the soft tissues. DATA REPOSITORY: RADIATION DOSE DELIVERED:
--- NOTE | 2023-07-03 15:03 | ED.GENADUL_ITS ---
Discharge Plan Disposition Patient Disposition: Home Discharge Details Clinical Impression: Laceration of left palm, Laceration of right wrist Primary Care Provider: Eugenio Loving ED Provider: Eugenio Prado Home Meds and New Rx's Prescriptions: Continued buspirone 30 mg tablet 30 mg PO BID chlorhexidine gluconate 0.12 % mouthwash 15 ml mucous membrane BID methadone 10 mg/5 mL solution 120 mg PO BID hydroxyzine HCl 50 mg tablet 100 mg PO DAILY PRN carbamazepine [Tegretol] 200 MG tablet 400 mg PO BID clonazepam 1 MG tablet 0.5 mg PO BID sucralfate [Carafate] 1 gram tablet 1 g PO BID Qty: 60 1RF omeprazole 40 mg capsule,delayed release(DR/EC) 40 mg PO DAILY Qty: 30 0RF Discharge Instructions Instructions: Laceration (ED) Additional Instructions: You were seen in the emergency department for your laceration which was closed with stitches. Your x-ray showed no foreign bodies. As we discussed, please return to the emergency department if you develop any foul-smelling drainage from your laceration any fevers or any worsening pain. Your stitches need to come out in 7 to 10 days. Please return to the emergency department on 07/12/2023 to have your stitches removed. For your pain please take medications as follows: 1. Take acetaminophen (Tylenol), 1,000 mg (two 500 mg tabs) every 6 hours 2. Take ibuprofen (Advil), 400 mg every 6 hours. Discharge Data Discharge Date/Time-TO BE ENTERED AT DEPARTURE: 07/03/23 16:54 HPI General Date/Time Provider Initiated Documentation: 07/03/23 13:43 . HPI Narrative: MDM This is an overall very well-appearing [id number] 47-year-old male with left palmar laceration for which patient will undergo primary closure following imaging and irrigation in the ED. Health community marketing manager Dia has access to the patient's medical record and per chart review at [facility] found that his tetanus was updated earlier this year. No signs of ligamentous injury on my assessment. Will provide analgesia using LET along with acetaminophen and ibuprofen. Patient does also have a contralateral right superficial wrist laceration which will be rinsed but not require primary closure. No pain or proportion to suggest necrotizing soft tissue infection. 4:20 PM X-ray read as no fracture or dislocation. No radiopaque foreign bodies. Will proceed with primary closure. Please see procedure note concerning primary closure. Patient and I discussed his return indications including any worsening pain any foul-smelling drainage any streaking signs of infection or any fevers. He was discharged in a removable wrist brace to support his hand while promoting healing. He understood his return indications and was discharged with empiric trial of expectant outpatient management. Chronic conditions affecting the care of the patient: Bipolar disorder History obtained from an outside historian: N/A External record review: No [facility] EMR records Medications: Ibuprofen and acetaminophen Social determinants of health affecting disposition: N/A Management discussed with: N/A Treatment/interventions considered: N/A Response to therapies provided: Improved pain following oral analgesia and local analgesia in the ED. HPI This is a [id number] 47-year-old male with hobby of guitar playing now with left palmar laceration he sustained earlier today. Patient reports that he was moving a toilet. He went to carry the toilet into a dumpster and slipped and fell forward breaking his fall with his outstretched left hand which made contact with the shattered porcelain of the toilet. He noticed a deep laceration on his left hand. He also noticed a superficial laceration on his right wrist. He controlled the bleeding at home. He did not lose consciousness. He did not strike his head. He had no preceding chest pain nausea nor vomiting. Exam General: Well-appearing in no acute distress speaking in complete sentences. Head: Normocephalic, atraumatic. Eye: Extraocular eye movements intact. No conjunctival injection. No scleral icterus. Ear, nose, mouth, throat: Grossly normal inspection. Normal voice, handling secretions normally. Neck: Trachea midline. Cardiovascular: Well-perfused distal extremities. Respiratory: Nonlabored respiration. Gastrointestinal: Nondistended abdomen. Musculoskeletal: Left hand: On the palmar aspect of the left hand there is an approximately 3 cm laceration that is hemostatic just proximal to the MCP joints. Patient has intact flexion and extension in the index, middle, ring, and little fingers across the MCP, PIP, and DIP joints. Full range of motion left thumb. Sensation intact throughout the whole hand. Left 2+ radial pulse.Sensation motor function intact in the left hand throughout the radial, median, and ulnar nerve distributions. Right hand: Superficial right wrist laceration that is hemostatic on the palmar aspect measuring approximately 1.5 cm. Right hand warm and well-perfused with 2+ right radial pulse. Sensation motor function intact in the right hand throughout the radial, median, and ulnar nerve distributions. Skin: Normal for age and race, grossly normal temperature and turgor. No acute rash. Neurologic: Alert and appropriate, no apparent acute deficits. Psychiatric: Mood and manner are appropriate. Grooming and personal hygiene are appropriate. Related Data Home Medications Medication Instructions Recorded Confirmed carbamazepine 200 mg tablet 400 mg PO BID 11/16/12 06/28/23 (Tegretol) clonazepam 1 mg tablet 0.5 mg PO BID 06/02/14 06/28/23 buspirone 30 mg tablet 30 mg PO BID 11/11/22 06/28/23 chlorhexidine gluconate 0.12 % 15 ml mucous membrane BID 11/11/22 06/28/23 mouthwash hydroxyzine HCl 50 mg tablet 100 mg PO DAILY PRN 11/11/22 06/28/23 methadone 10 mg/5 mL oral solution 120 mg PO BID 11/11/22 06/28/23 sucralfate 1 gram tablet (Carafate) 1 g PO BID #60 tabs 05/19/23 06/28/23 omeprazole 40 mg capsule,delayed 40 mg PO DAILY #30 caps 06/28/23 release Previous Rx's Medication Instructions Recorded sucralfate 1 gram tablet (Carafate) 1 g PO BID #60 tabs 05/19/23 omeprazole 40 mg capsule,delayed 40 mg PO DAILY #30 caps 06/28/23 release Allergies Allergy/AdvReac Type Severity Reaction Status Date / Time divalproex sodium AdvReac Severe GI upset Unverified 07/03/23 16:18 [From Depakote] General Stated Complaint: Laceration RAMU: 3 PFSH All Active Problems (Updated 07/03/23 @ 15:19 by Eugenio Prado MD) Laceration of right wrist (Acute) Laceration of left palm (Acute) Encounter for colorectal cancer screening (Acute) Bipolar 1 disorder (Acute) Akathisia (Acute) Gastritis (Acute) Medical History (Updated 07/03/23 @ 15:19 by Eugenio Prado MD) Alcohol abuse, in remission Hepatitis C, chronic Pt. states not taking levothyroxine Hypothyroidism Erectile dysfunction Eczema Hyperlipidemia Opioid dependence Testicular pain, left Dental caries Benign hypertension Surgical History (Updated 06/28/23 @ 14:18 by Estefany Dumont) History of esophagogastroduodenoscopy (~06/2023) biopsies EXCISION OSTEOCHONDROMA (10/17/12) RIGHT TIBIA Bankart repair (11/19/12) Left shoulder Social History Smoking/Tobacco Use Status: Current every day Tobacco Type: cigarettes Smoking risk assessment performed?: Yes Alcohol Intake: never Drug use: Daily Substance use type: marijuana Housing: apartment Do you feel safe at home: Yes Do you feel safe in your relationship?: Yes Course Vital Signs Vital signs: Vital Signs Temperature 36.3 C L 07/03/23 13:37 Pulse 94 H 07/03/23 13:37 Respiratory Rate 18 07/03/23 13:37 Blood Pressure 183/113 H 07/03/23 13:37 Pulse Oximetry 95 07/03/23 13:37 Temperature 36.3 C L 07/03/23 13:37 Temperature Source Temporal Artery Scan 07/03/23 13:37 Pulse 94 H 07/03/23 13:37 Respiratory Rate 18 07/03/23 13:37 Blood Pressure 183/113 H 07/03/23 13:37 Blood Pressure Position Sitting 07/03/23 13:37 Pulse Oximetry 95 07/03/23 13:37 Oxygen Delivery Method Room Air 07/03/23 13:37 Oxygen Flow Rate 0 07/03/23 13:37 Procedures Laceration Laceration 1: Site: hand (Palmar aspect) Side (If applicable): left Size (cm): 2.5 Description: irregular Depth: simple, single layer Local Anesthetic: other anesthetic (LET) Pre-repair: wound explored, irrigated extensively and deep structures intact Skin layer closed with: other (5-0 Prolene) Size (cm): 5-0 Technique: simple, interrupted
[2023-07-03] MEDS: Lidocaine/Epinephri/Tetracaine Topical Gel 3 ML TP (15:37)
[2023-07-03] MEDS: Ibuprofen 600 MG TAB PO (15:37)
[2023-07-03] MEDS: Acetaminophen 500 MG TAB 1000 MG PO (15:37)
== END 2023-07-03 16:54 | disposition home or self-care (01) ==
PROVIDERS: Emergency Provider Emergency Medicine; PCP Family Medicine
DX: S61.411A Laceration without foreign body of right hand, initial encounter (principal); S61.511A Laceration without foreign body of right wrist, initial encounter; E03.9 Hypothyroidism, unspecified; E78.5 Hyperlipidemia, unspecified; I10 Essential (primary) hypertension; F17.210 Nicotine dependence, cigarettes, uncomplicated; Z79.899 Other long term (current) drug therapy; W26.8XXA Contact with other sharp object(s), not elsewhere classified, initial encounter; Y93.89 Activity, other specified
CPT/HCPCS: 12001; 99283; 73130

== ENCOUNTER → 2023-09-11 11:06 | Outpatient (BNVA) | payer MEDICARE, MEDICAID, SELFPAY | PROVIDERS: PCP Family Medicine; Referring Provider Family Medicine; Visit Provider Surgery | DX: Z09 Encounter for follow-up examination after completed treatment for conditions other than malignant neoplasm (principal); F31.9 Bipolar disorder, unspecified; K29.50 Unspecified chronic gastritis without bleeding; K22.70 Barrett's esophagus without dysplasia; F11.20 Opioid dependence, uncomplicated; F10.11 Alcohol abuse, in remission; I10 Essential (primary) hypertension; E78.5 Hyperlipidemia, unspecified; K02.9 Dental caries, unspecified; B18.2 Chronic viral hepatitis C | CPT/HCPCS: 99214 ==

== ENCOUNTER 2024-12-30 07:58 | Outpatient (CLI) | payer MEDICARE, MEDICAID, SELFPAY ==
--- NOTE | 2024-12-30 08:00 | RT.EKG_ITS ---
APPROVED REPORT Exam: Resting ECG Reason for Exam: HIGH RISK MEDICATION USE Patient Location: O HR:67 bpm ECG Measurements Heart Rate 67 AXIS NM 181 P 48 QRSd 118 QRS 53 QT 431 T 53 QTc 455 Conclusion Sinus rhythm...normal P axis, V-rate 50- 99 \ Normal Electrocardiogram
== END 2024-12-30 07:59 | disposition home or self-care (01) ==
PROVIDERS: PCP Family Medicine; Referring Provider Family Medicine; Visit Provider Family Medicine
DX: Z51.81 Encounter for therapeutic drug level monitoring (principal)
CPT/HCPCS: 93005; 93010

== ENCOUNTER 2025-03-02 14:50 | Emergency (ER) | payer MEDICARE, MEDICAID, SELFPAY ==
[2025-03-02 15:01] VITALS: BP 142/86; PULSE 76; RESP 16; TEMP 36.9; O2SAT 97
[2025-03-02 15:07] VITALS: BP 142/86; PULSE 76; RESP 16; TEMP 36.9; O2SAT 97
--- NOTE | 2025-03-02 15:43 | W.ED.GENAD ---
Discharge Plan Disposition Patient Disposition: Home Condition: Stable Discharge Details Clinical Impression: Dental infection Primary Care Provider: None,None ED Provider: Martha Arboleda Home Meds and New Rx's Prescriptions: New clindamycin HCl [Cleocin HCl] 150 mg capsule 450 mg PO Q6H 9 Days Qty: 108 0RF ondansetron 4 mg tablet,disintegrating 4 mg PO Q8H PRNQty: 7 0RF No Action buspirone 30 mg tablet 30 mg PO BID methadone 10 mg/5 mL solution 120 mg PO BID carbamazepine [Tegretol] 200 MG tablet 400 mg PO BID Discharge Instructions Instructions: Dental Pain (DC) Additional Instructions: You were seen in the emergency department today for evaluation of the dental infection. In our department you had a full physical examination performed, had reassuring vital signs, and we are starting you on antibiotics. Please take all of the antibiotic until it is gone, even if you start to feel better. While taking clindamycin you should take a probiotic or eat a yogurt with live active cultures at least once per day. I have provided you with a short prescription for Zofran to use as needed for nausea. Please use therapeutic dosing of Tylenol (acetaminophen) & Advil (ibuprofen) in an alternating fashion as follows: Take 1000mg of Tylenol every 6 hours without missing doses- that is 4 times per day. [place] in between the Tylenol doses, take 600mg of Advil also on a 6 hour schedule, that is also 4 times per day. With this strategy, you will be taking something for fever/pain as often as every 3 hours. The daily maximum dosing of Tylenol is 4000mg, and the daily maximum dosing of Advil is 2400mg. Please note that some common cold medications & prescription pain medications may contain acetaminophen and you need to read OTC drug labels and factor that in to maximum daily doses. Please follow-up with your oral surgeon/dentist. I placed a referral to establish with a new primary care provider. Please follow-up with your primary care provider in the next few days to discuss this visit and any symptoms that change, worsen, or persist. Thank you for allowing us to be part of your care. Stand Alone Forms: Work Release HPI General Mode of arrival: ambulatory. Date/Time Provider Initiated Documentation: 03/02/25 15:20. Limitations to Documentation: no limitations. Information obtained by: patient and old records reviewed. HPI Narrative: This is a 49-year-old male patient presenting for evaluation of a dental infection. The patient reports that he has a left upper wisdom tooth that was growing and crooked, requiring extraction of the adjacent tooth a few years ago. He had issues with multiple infections until a residual piece of root was removed about 6 months ago. He reports that he failed 2 courses of Augmentin and ultimately was placed on clindamycin successfully. 2 weeks ago the patient reported worsening of his discomfort on that right side, with pain and swelling of the right cheek and right sided jaw. He states that he has not had any fevers or chills, has been eating and drinking typically for him but feels very fatigued and slightly nauseated. The patient has the ability to contact his oral surgeon, and has a dentist. He states that he does not currently have a primary care doctor. He has not taken antibiotics for approximately 6 months. He reports no difficulty opening his mouth, moving his neck, or swallowing. Related Data Home Medications ?Medication ?Instructions ?Recorded ?Confirmed carbamazepine 200 mg tablet 400 mg PO BID 11/16/12 03/02/25 (Tegretol) buspirone 30 mg tablet 30 mg PO BID 11/11/22 03/02/25 methadone 10 mg/5 mL oral solution 120 mg PO BID 11/11/22 03/02/25 clindamycin HCl 150 mg capsule 450 mg (3 x 150 mg) PO Q6H 9 days 03/02/25 (Cleocin HCl) #108 caps ondansetron 4 mg disintegrating 4 mg PO Q8H PRN #7 tabs 03/02/25 tablet Previous Rx's ?Medication ?Instructions ?Recorded clindamycin HCl 150 mg capsule 450 mg (3 x 150 mg) PO Q6H 9 days 03/02/25 (Cleocin HCl) #108 caps ondansetron 4 mg disintegrating 4 mg PO Q8H PRN #7 tabs 03/02/25 tablet Allergies Allergy/AdvReac Type Severity Reaction Status Date / Time divalproex sodium (From AdvReac Severe GI upset Unverified 03/02/25 15:10 Depakote) General Stated Complaint: DentalOral RAMU: 4 Exam Narrative Exam Narrative: Gen: Awake and alert, in no apparent distress HEENT: Non-icteric sclera, PERRL, EOMs full and without nystagmus. The patient has tenderness adjacent to tooth #16 without periapical abscess. He has no purulence with palpation over the parotid gland, has a soft floor of the mouth with no trismus. Posterior pharynx without erythema, exudate, or swelling. Neck: Supple, full range of motion without meningismus Lungs: No apparent respiratory distress, normal respiratory effort. Lung sounds clear and equal bilaterally without wheezes, rhonchi, rales CV: Appears well perfused Abdomen: Non-distended MSK: Moves 4 extremities without apparent limitation in ROM Skin: Visualized skin without rashes, cyanosis. Neuro: Normal Gait, no obvious focal deficits or facial asymmetry. Speaks in full, clear sentences. Psych: Appropriate for situation. Course Vital Signs Vital signs: Vital Signs Temperature 36.9 C 03/02/25 15:01 Pulse 76 03/02/25 15:01 Respiratory Rate 16 03/02/25 15:01 Blood Pressure 142/86 H 03/02/25 15:01 Pulse Oximetry 97 03/02/25 15:01 Temperature 36.9 C 03/02/25 15:07 Temperature Source Oral 03/02/25 15:07 Pulse 76 03/02/25 15:07 Respiratory Rate 16 03/02/25 15:07 Blood Pressure 142/86 H 03/02/25 15:07 Blood Pressure Position Sitting 03/02/25 15:07 Pulse Oximetry 97 03/02/25 15:07 Oxygen Delivery Method Room Air 03/02/25 15:07 Oxygen Flow Rate 0 03/02/25 15:07 Pain Level 3 03/02/25 15:07 Medical Decision Making This is a 49-year-old male patient presenting for evaluation of dental pain. My differential includes but is not limited to dental infection, considered periapical abscess and suppurative parotitis though these are less consistent with my physical examination. The patient has no concerning physical exam findings to suggest deep space infection such as Cholo's angina, retropharyngeal abscess, peritonsillar abscess, cavernous sinus thrombosis. He has no systemic symptoms to suggest sepsis or bacteremia. I am reassured by the patient's hemodynamic stability and physical exam and plan to start him on a course of clindamycin. I counseled him on yogurt or probiotics to avoid GI upset, and provided him with a short course of Zofran for management of his nausea. The patient has the ability to follow-up with dental providers, a referral to primary care will be placed. At this time, the patient has had a full medical evaluation and is safe for discharge to home. They are hemodynamically stable, ambulatory, and tolerating PO. They are understanding of the follow-up plan and return precautions. They left our facility without incident. Martha Arboleda MD [facility] All Active Problems (Updated 03/02/25 @ 15:43 by Martha Arboleda MD) Dental infection (Acute) Hale's esophagus (Acute) Encounter for colorectal cancer screening (Acute) Bipolar 1 disorder (Acute) Akathisia (Acute) Gastritis (Acute) Medical History Alcohol abuse, in remission Hepatitis C, chronic Pt. states not taking levothyroxine Hypothyroidism Erectile dysfunction Eczema Hyperlipidemia Opioid dependence Testicular pain, left Dental caries Benign hypertension Surgical History History of esophagogastroduodenoscopy (~06/2023) biopsies EXCISION OSTEOCHONDROMA (10/17/12) RIGHT TIBIA Bankart repair (11/19/12) Left shoulder Social History Smoking/Tobacco Use Status: Current every day Tobacco Type: cigarettes Smoking risk assessment performed?: Yes Alcohol Intake: never Drug use: Daily Substance use type: marijuana Housing: apartment Do you feel safe at home: Yes Do you feel safe in your relationship?: Yes
[2025-03-02] MEDS: Ondansetron O.D.T. 4 MG TABEF, 3 TABS/BTL PO (15:53)
[2025-03-02] MEDS: Clindamycin 150 MG CAP, 12 CAPS/BTL 450 MG PO (15:54)
== END 2025-03-02 16:02 | disposition home or self-care (01) ==
PROVIDERS: Emergency Provider Emergency Medicine
DX: R68.84 Jaw pain (principal); K04.7 Periapical abscess without sinus
CPT/HCPCS: 99283 ×2

== ENCOUNTER 2025-05-16 11:33 | Outpatient (REF) | payer MEDICARE, MEDICAID, SELFPAY ==
[2025-05-16 16:25] LABS: Abs Immature Grans 0.01 10^3/uL (0.0-0.06); HCT 47.4 % (40.0-50.0); HGB 15.9 g/dL (13.5-17.5); Immature Grans % 0.2 %; MCH 28.4 pg (27.0-33.0); MCHC 33.5 % (32.0-36.0); MCV 85 fL (80-95); MPV 10.5 fL (8.0-11.0); Platelet Count 232 10^3/uL (130-400); RBC 5.59 10^6/uL (4.36-5.78); RDW 12.0 % (11.8-14.1); RDW-SD 36.6 fL; WBC 5.12 10^3/uL (4.4-10.8)
[2025-05-16 16:46] LABS: ALT 150 U/L (16-63); AST 59 U/L (15-37); Albumin 4.0 g/dL (3.4-5.0); Alkaline Phosphatase 71 U/L (46-116); Anion Gap 8.1 mmol/L (3-11); BUN 19 mg/dL (7-18); Bilirubin, Total 0.4 mg/dL (0.2-1.0); CO2 28.9 mmol/L (21.0-32.0); Calcium 9.3 mg/dL (8.5-10.1); Chloride 101 mmol/L (98-107); Glucose 114 mg/dL (74-106); Potassium 4.2 mmol/L (3.5-5.1); Sodium 138 mmol/L (136-145); TSH (W/Ref FT4) 5.00 uIU/mL (0.36-3.74); Total Protein 8.3 g/dL (6.4-8.2)
[2025-05-19 10:02] LABS: HIV-1/2 Ag & Ab Screen Negative (Negative)
[2025-05-19 11:42] LABS: HCV RNA Detection Quantitative 3740000 IU/mL (Undetected); HCV RNA Qualitative Detected (Undetected)
== END 2025-05-16 11:34 | disposition home or self-care (01) ==
LOC: NCHCN 11:33
PROVIDERS: PCP Student in an Organized Health Care Education/Training Program; Visit Provider Student in an Organized Health Care Education/Training Program
DX: B18.2 Chronic viral hepatitis C (principal); R53.83 Other fatigue; Z11.4 Encounter for screening for human immunodeficiency virus [HIV]
CPT/HCPCS: 80053; 81596; 87389; 87522; 84439; 84443; 85025; 87521

== ENCOUNTER → 2025-06-03 02:02 | Outpatient (CLI) | payer MEDICARE, MEDICAID, SELFPAY ==
--- NOTE | 2025-06-03 08:50 | DI.US_ITS ---
Exam(s) US ABDOMEN LIMITED EXAM: US ABDOMEN LIMITED CLINICAL HISTORY: ELEVATED LIVER ENZYMES, R74.8, ABNL LEVELS SERUM ENZYMES TECHNIQUE: Ultrasound of the right upper quadrant performed using standard protocol. COMPARISON: No exams were available for comparison FINDINGS: LIVER: Enlarged at 20.3 cm in length. Mildly increasedechogenicity. No focal liver lesions are seen.. GALLBLADDER: No evidence of cholelithiasis. No evidence of wall thickening. No pericholecystic fluid identified. SINGH'S SIGN: Negative. BILIARY SYSTEM: No intrahepatic or extrahepatic biliary ductal dilation. RIGHT KIDNEY: Normal size. No evidence of renal calculi. No evidence of hydronephrosis. No suspicious renal mass. No cyst identified. PANCREAS: Normal where visualized. ABDOMINAL AORTA AND IVC: Visualized portions normal caliber. ASCITES: None seen. IMPRESSION: Mildly enlarged liver with mild hepatic steatosis. DATA REPOSITORY:
== END ==
LOC: DI 02:02
PROVIDERS: PCP Student in an Organized Health Care Education/Training Program; Visit Provider Student in an Organized Health Care Education/Training Program
DX: R74.8 Abnormal levels of other serum enzymes (principal)
CPT/HCPCS: 76705

== ENCOUNTER → 2025-06-03 02:03 | Outpatient (CLI) | payer MEDICARE, MEDICAID, SELFPAY ==
--- NOTE | 2025-06-03 08:30 | DI.US_ITS ---
Exam(s) US SOFT TISS EXTREMITY/GROIN EXAM: US SOFT TISS EXTREMITY/GROIN CLINICAL HISTORY: MASS LT THIGH, R22.42, LT LATERAL THIGH PALPABLE OVOID LUMP. TECHNIQUE: Ultrasound was performed using standard protocol. COMPARISON: No exams were available for comparison FINDINGS: Sonographic assessment utilizing grayscale and color Doppler imaging was performed and targeted to the area of clinical concern. No sonographic abnormalities identified. IMPRESSION: No sonographic abnormality is identified in the area of the palpable abnormality in the lateral left thigh. DATA REPOSITORY:
== END ==
LOC: DI 02:03
PROVIDERS: PCP Student in an Organized Health Care Education/Training Program; Visit Provider Nurse Practitioner Family
DX: R22.42 Localized swelling, mass and lump, left lower limb (principal); K76.0 Fatty (change of) liver, not elsewhere classified
CPT/HCPCS: 76882; 76705

== ENCOUNTER 2025-07-15 00:26 | Outpatient (CLI) | payer MEDICARE, MEDICAID, SELFPAY ==
[2025-07-15 16:40] LABS: LDH 186 U/L (120-246)
[2025-07-18 09:27] LABS: ALT 105 U/L (7-55); ActiTest Grade A3; ActiTest Interpretation severe activity; ActiTest Score 0.69; Apoliprotein A1 137 mg/dL (>=120); Bilirubin, Total 0.4 mg/dL (0.0 - 1.2); FibroTest Interpretation advanced fibrosis; FibroTest Score 0.58; FibroTest Stage F3; GGT 62 U/L (8 - 61)
== END 2025-07-15 00:27 | disposition home or self-care (01) ==
LOC: LBO 00:26
PROVIDERS: PCP Student in an Organized Health Care Education/Training Program; Visit Provider Student in an Organized Health Care Education/Training Program
DX: B18.2 Chronic viral hepatitis C (principal); R40.0 Somnolence
CPT/HCPCS: 36415; 81596; 83615